=== PATIENT | female | born 1965 | race Caucasian/White ===

== ENCOUNTER 2016-04-03 12:22 | Inpatient (IN) | payer MEDICARE, OTHER ==
[2016-04-03] MEDS ORDERED: MAGNESIUM SULFATE/D5W 100 ML IV SCH (13:00)
--- NOTE | 2016-04-03 13:03 | ER Document Report ---
ED General - General Stated Complaint: SHORTNESS OF BREATH Mode of Arrival: Medic Information source: Patient Notes: Patient presents emergency department with reports of shortness of breath history of asthma. Patient reports symptoms started approximately 4 days ago. She was evaluated by Dr. Sal yesterday and was treated with steroids- 20mg day and doxycycline. Patient reports that around 03:00 this am she awoke with increased problems breathing and has been doing the DuoNeb every hour. Patient reports she's been intubated 9 times due to her asthma. Last time they used the nonrebreather mask on her and she did much better than intubated. She denies other symptoms such as fever vomiting diarrhea. Patient reports she feels calm and tired now. TRAVEL OUTSIDE OF THE [place] IN LAST 30 DAYS: No - HPI Onset: Other - 4 days Onset/Duration: Persistent Quality of pain: No pain Associated symptoms: None Exacerbated by: Denies Relieved by: Denies Similar symptoms previously: Yes Recently seen / treated by doctor: Yes - Related Data Allergies/Adverse Reactions: ceftriaxone sodium [From Rocephin] Allergy (Severe, Verified 02/07/16 12:41) resp. distress Histamine H2 Inhibitors Allergy (Severe, Verified 02/07/16 12:41) Hives latex [Latex] Allergy (Severe, Verified 02/07/16 12:41) rash Penicillins Allergy (Severe, Verified 02/07/16 12:41) anaphalactic moxifloxacin HCl [From Avelox] Adverse Reaction (Severe, Verified 02/07/16 12:41 ) Past Medical History - General Information source: Patient - Social History Smoking Status: Unknown if Ever Smoked Cigarette use (# per day): No Frequency of alcohol use: None Drug Abuse: None Lives with: Family Family History: CAD, Hypertension, Malignancy - Past Medical History Cardiac Medical History: Reports: Hx Hypertension, Hx Pulmonary Embolism Pulmonary Medical History: Reports: Hx Asthma, Hx Pneumonia - 2014, Hx Intubation - x9, Hx Respiratory Failure Renal/ Medical History: Reports: Hx Kidney Stones Malignancy Medical History: Reports: Hx Breast Cancer Musculoskeltal Medical History: Reports Hx Arthritis - shoulders, hips Psychiatric Medical History: Reports: Hx Anxiety Denies: Hx Depression Past Surgical History: Reports: Hx Abdominal Surgery - hiatal hernia, Hx Breast Surgery - Benign mass removed R breast, Hx Section, Hx Cholecystectomy , Hx Genitourinary Surgery - Hiatal hernia repair, Hx Lumpectomy. Denies: Hx Appendectomy, Hx Bowel Surgery, Hx Coronary Artery Bypass Graft, Hx Gastric Bypass Surgery, Hx Herniorrhaphy, Hx Hysterectomy, Hx Mastectomy, Hx Pacemaker, Hx Tonsillectomy, Hx Tubal Ligation - Immunizations Immunizations up to date: Yes Hx Diphtheria, Pertussis, Tetanus Vaccination: Yes Hx Pneumococcal Vaccination: 04/15/11 Review of Systems - Review of Systems Notes: Review HPI for review of systems., All other systems negative Physical Exam - Vital signs Vitals: Temp Pulse Resp BP Pulse Ox 98.9 F 116 H 22 H 179/114 H 90 L 04/03/16 12:25 04/03/16 12:25 04/03/16 12:25 04/03/16 12:25 04/03/16 12:25 - Notes Notes: PHYSICAL EXAMINATION: GENERAL: No acute distress HEAD: Atraumatic, normocephalic. EYES: Pupils equal round extraocular movements intact, sclera anicteric, conjunctiva are normal. ENT: 4l/nc, nares patent, Moist mucous membranes. NECK: Normal range of motion, supple without lymphadenopathy LUNGS: Wheezes A & P HEART: tachypneic ABDOMEN: Soft, no tenderness. No guarding, no rebound EXTREMITIES: Normal range of motion, no pitting edema. No cyanosis. NEUROLOGICAL: Cranial nerves grossly intact. Normal sensory/motor exams. PSYCH: Normal mood, normal affect. SKIN: Warm, Dry, normal turgor, no rashes or lesions noted Course - Re-evaluation Re-evalutation: 04/03/16 13:00 Dr. La consulted regarding patient's symptoms. She agrees with magnesium. Advises abg, plan for admission. Patient reports she's had magnesium before without problems. Patient also reports she does not tolerate being intubated more BiPAP. Patient reports last time she was here they put her on a nonrebreather and that worked. 04/03/16 14:37 Patient O2 sat remained 88-90 percent. Patient with no retraction reports she just feels very tired. albuteral neb ordered 04/03/16 15:41 Patient declines BiPAP. Agrees to try Ventimask, O2 sat still remained 88-90%. pt ST. Dr. Brower consult for admission. Patient to be admitted to [facility]. Patient opted - Vital Signs Vital signs: Temp Pulse Resp BP Pulse Ox 98.9 F 116 H 21 H 142/91 H 90 L 04/03/16 12:25 04/03/16 12:25 04/03/16 16:00 04/03/16 15:01 04/03/16 16:00 - Laboratory Result Diagrams: 04/03/16 13:28 04/03/16 13:28 Laboratory results interpreted by me: 04/03/16 04/03/16 04/03/16 13:28 13:28 13:28 WBC 11.1 H MCV 76 L MCH 25.7 L RDW 16.1 H Seg Neutrophils % 82.7 H Lymphocytes % 10.1 L Absolute Neutrophils 9.2 H D-Dimer 1.93 H Carbonic Acid ABG pCO2 ABG pO2 ABG O2 Saturation Potassium 3.5 L Carbon Dioxide 21 L Glucose 143 H 04/03/16 14:15 WBC MCV MCH RDW Seg Neutrophils % Lymphocytes % Absolute Neutrophils D-Dimer Carbonic Acid 1.01 L ABG pCO2 33.5 L ABG pO2 52.1 L ABG O2 Saturation 88.7 L Potassium Carbon Dioxide Glucose - Diagnostic Test Radiology reviewed: Image reviewed, Reports reviewed - IMPRESSION: Negative chest allowing for low lung volumes. - EKG Interpretation by Me EKG shows normal: Sinus rhythm Discharge - Discharge Clinical Impression: Breathing difficulty, Asthma exacerbation Condition: Stable Disposition: ADMITTED INPATIENT Admitting Provider: Hospitalist - Dr. Brower Unit Admitted: [facility]
[2016-04-03] MEDS: MAGNESIUM SULFATE/D5W 100 ML IV SCH ×2 (13:06→14:20)
[2016-04-03 13:40] LABS: ABSOLUTE BASOPHILS # (AUTO) 0.1 10^3/uL (0.0-0.2); ABSOLUTE LYMPHOCYTES (AUTO) 1.1 10^3/uL (0.5-4.7); ABSOLUTE MONOCYTES (AUTO) 0.7 10^3/uL (0.1-1.4); ABSOLUTE NEUT (AUTO) 9.2 10^3/uL (1.7-8.2); BASOPHILS % (AUTO) 0.5 % (0-2); EOSINOPHILS % (AUTO) 0.4 % (0-6); HEMATOCRIT 39.4 % (36.0-47.0); HEMOGLOBIN 13.3 g/dL (12.0-15.5); HGB HCT DIFFERENCE 0.5; LYMPHOCYTES % (AUTO) 10.1 % (13-45); MEAN CORPUSCULAR HEMOGLOBIN 25.7 pg (27.0-33.4); MEAN CORPUSCULAR HGB CONC 33.7 g/dL (32.0-36.0); MEAN CORPUSCULAR VOLUME 76 fl (80-97); MONOCYTES % (AUTO) 6.3 % (3-13); RED BLOOD COUNT 5.17 10^6/uL (3.72-5.28); RED CELL DISTRIBUTION WIDTH 16.1 % (11.5-14.0); SEGMENTED NEUTROPHILS % (AUTO) 82.7 % (42-78); WHITE BLOOD COUNT 11.1 10^3/uL (4.0-10.5)
[2016-04-03 13:55] LABS: ALANINE AMINOTRANSFERASE 40 U/L (9-52); ALBUMIN 4.1 g/dL (3.5-5.0); ALKALINE PHOSPHATASE 79 U/L (38-126); ANION GAP 18 (5-19); ASPARTATE AMINO TRANSFERASE 23 U/L (14-36); BILIRUBIN,TOTAL 0.5 mg/dL (0.2-1.3); BLOOD UREA NITROGEN 11 mg/dL (7-20); CALCIUM 9.9 mg/dL (8.4-10.2); CARBON DIOXIDE 21 mmol/L (22-30); CHLORIDE 101 mmol/L (98-107); CREATINE KINASE 80 U/L (30-135); GLUCOSE 143 mg/dL (75-110); POTASSIUM 3.5 mmol/L (3.6-5.0); SODIUM 139.6 mmol/L (137-145); TOTAL PROTEIN 7.3 g/dL (6.3-8.2)
[2016-04-03 14:08] LABS: CREATINE KINASE MB 1.06 ng/mL (<4.55); TROPONIN I < 0.012 ng/mL
[2016-04-03] MEDS ORDERED: ALBUTEROL SULFATE 0.083% NEB 2.5 MG/3 ML AMPUL NEB ONE ×2 (14:36→16:17)
[2016-04-03 14:51] LABS: ARTERIAL BLOOD BASE EXCESS -0.6 mmol/L; ARTERIAL BLOOD O2 SATURATION 88.7 % (94-98)
[2016-04-03] MEDS ORDERED: ACETAMINOPHEN 325 MG TABLET PO PRN (17:16)
[2016-04-03] MEDS ORDERED: NORMAL SALINE 1000 ML 1,000 ML IV PRN (17:16)
[2016-04-03] MEDS ORDERED: ONDANSETRON HCL INJ/PF 4 MG/2 ML SDV IV PRN (17:25)
[2016-04-03] MEDS ORDERED: LORAZEPAM INJ 2 MG/1 ML VIAL IV PRN (17:26)
[2016-04-03] MEDS ORDERED: METHYLPREDNISOLONE INJ 125 MG/2 ML SDV IV ONE ×2 (17:27→19:30)
[2016-04-03] MEDS ORDERED: OXYCODONE-ACETAMINOPHEN 5-325 MG TABLET PO PRN (17:29)
[2016-04-03] MEDS ORDERED: METHYLPREDNISOLONE INJ 125 MG/2 ML SDV IV SCH (17:30)
[2016-04-03] MEDS ORDERED: DEXTROSE 50%-WATER 25 GM/50 ML DISP.SYRIN IV PRN ×2 (17:32)
[2016-04-03] MEDS ORDERED: GLUCAGON,HUMAN RECOMB 1 MG INJ IM PRN (17:32)
[2016-04-03] MEDS ORDERED: DEXTROSE 40% GEL 15 GM TUBE PO PRN ×2 (17:32)
[2016-04-03] MEDS ORDERED: SULFAMETHOXAZOLE/TRIMETHOPRIM 800-160 MG TABLET PO SCH (18:00)
--- NOTE | 2016-04-03 18:15 | PDOC H&P ---
History of Present Illness Admission Date/PCP: 04/03/16 Patient complains of: Shortness of breath History of Present Illness: VALERIA ST is a 50 year old female with history of asthma, multiple intubations in the past has been having shortness of breath and wheezing with dry cough for the past 4 days. Patient using nebulizers and inhalers w/ Partial relieve symptoms. No chills or fever. There is some runny nose occasional sneezing and watery eyes. There is sore scratchy throat and postnasal drip. 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 However her oxygen saturation persisted to read low therefore the ambulance was called. Given 1 dose of Solu-Medrol according to the staff. 2 doses of magnesium and DuoNeb nebulizers were given. Oxygen saturation was low and patient was placed on BiPAP but she refused. No mental status change was reported. The patient was then referred for admission. Patient denies any chest pain or chest congestion. She has a little bit anxious and feeling tired. Past Medical History Cardiac Medical History: Reports: Hypertension, Pulmonary Embolism Pulmonary Medical History: Reports: Asthma, Intubation - x9, Pneumonia - 2014, Respiratory Failure Malignancy Medical History: Reports: Breast Cancer Musculoskeltal Medical History: Reports: Arthritis - shoulders, hips Psychiatric Medical History: Denies: Depression Hematology: Reports: Anemia - Teenage years, & after csection Past Surgical History Past Surgical History: Reports: Section, Cholecystectomy Denies: Amputation, Appendectomy, Coronary Artery Bypass Graft, Gastric Bypass Surgery, Herniorrhaphy, Hysterectomy, Mastectomy, Pacemaker, Tonsillectomy, Tubal Ligation Social History Information Source: Patient Lives with: Family Smoking Status: Never Smoker Frequency of Alcohol Use: None Hx Recreational Drug Use: No Drugs: None Hx Prescription Drug Abuse: No Family History Family History: CAD, Hypertension, Malignancy Parental Family History Reviewed: Yes Children Family History Reviewed: Yes Sibling(s) Family History Reviewed.: Yes Medication/Allergy Home Medications: Albuterol Sulfate [Ventolin HFA MDI 18 GM] 2 puff IH Q4H PRN 05/19/12 Ipratropium/Albuterol Sulfate [Duoneb 3 ml Ampul] 3 ml NEB RTQ4HP PRN #0 vial.neb 06/08/12 Lisinopril/Hydrochlorothiazide [Lisinopril-Hctz 20-12.5 mg Tab] 2 tab PO QHS Mometasone/Formoterol [Dulera 100 Mcg/5 Mcg Inhaler] 2 puff IH BID 11/27/14 Cetirizine HCl [Zyrtec 10 mg Tablet] 1 tab PO DAILY 11/01/15 Lorazepam [Ativan 1 mg Tablet] 1 mg PO Q6HP PRN #20 tablet 11/05/15 Prednisone [Sterapred Ds] 1 pkg PO ASDIR PRN 12 Days 11/05/15 Sulfamethoxazole/Trimethoprim [Bactrim Ds Tablet] 1 each PO BID #28 tablet 11/04 Cyclobenzaprine HCl [Flexeril 10 mg Tablet] 10 mg PO TIDP PRN #15 tab 02/05/16 Oxycodone HCl/Acetaminophen [Percocet 5-325 mg Tablet] 1 - 2 tab PO Q4H PRN #15 tablet 02/05/16 Allergies/Adverse Reactions: ceftriaxone sodium [From Rocephin] Allergy (Severe, Verified 02/07/16 12:41) resp. distress Histamine H2 Inhibitors Allergy (Severe, Verified 02/07/16 12:41) Hives latex [Latex] Allergy (Severe, Verified 02/07/16 12:41) rash Penicillins Allergy (Severe, Verified 02/07/16 12:41) anaphalactic moxifloxacin HCl [From Avelox] Adverse Reaction (Severe, Verified 02/07/16 12:41 ) Review of Systems Constitutional: PRESENT: weakness - Generalized. ABSENT: chills, fever(s), headache(s), weight gain, weight loss Eyes: ABSENT: visual disturbances Ears: ABSENT: hearing changes Nose, Mouth, and Throat: PRESENT: sore throat - Scratching more than sore. ABSENT: mouth pain Cardiovascular: PRESENT: dyspnea on exertion. ABSENT: chest pain, edema, orthropnea, palpitations Respiratory: ABSENT: cough, hemoptysis Gastrointestinal: ABSENT: abdominal pain, constipation, diarrhea, hematemesis, hematochezia, nausea, vomiting Genitourinary: ABSENT: dysuria, hematuria Musculoskeletal: ABSENT: joint swelling Integumentary: ABSENT: pruritus, rash, wounds Neurological: ABSENT: abnormal gait, abnormal speech, confusion, dizziness, focal weakness, syncope Psychiatric: PRESENT: anxiety. ABSENT: depression, homidical ideation, suicidal ideation Endocrine: ABSENT: cold intolerance, heat intolerance, polydipsia, polyuria Hematologic/Lymphatic: ABSENT: easy bleeding, easy bruising Physical Exam Vital Signs: Temp Pulse Resp BP Pulse Ox 98.9 F 116 H 21 H 142/91 H 90 L 04/03/16 12:25 04/03/16 12:25 04/03/16 16:00 04/03/16 15:01 04/03/16 16:00 Intake & Output 04/02/16 04/03/16 04/04/16 06:59 06:59 06:59 Weight 104.326 kg General appearance: PRESENT: mild distress, morbidly obese Head exam: PRESENT: atraumatic, normocephalic Eye exam: PRESENT: conjunctiva pink, EOMI, PERRLA. ABSENT: scleral icterus Ear exam: PRESENT: normal external ear exam. ABSENT: drainage Mouth exam: PRESENT: moist, neck supple, tongue midline Throat exam: ABSENT: post pharyngeal erythema, tonsillar erythema, tonsillar exudate, tonsillogmegaly Neck exam: ABSENT: carotid bruit, JVD, lymphadenopathy, thyromegaly Respiratory exam: PRESENT: decreased breath sounds, wheezes - Minimal, air exchange is fair. ABSENT: rales, rhonchi Cardiovascular exam: PRESENT: RRR, tachycardia. ABSENT: diastolic murmur, rubs , systolic murmur Pulses: PRESENT: normal dorsalis pedis pul Vascular exam: PRESENT: normal capillary refill GI/Abdominal exam: PRESENT: normal bowel sounds, soft. ABSENT: distended, guarding, mass, organolmegaly, rebound, tenderness Rectal exam: PRESENT: deferred Extremities exam: PRESENT: full ROM. ABSENT: calf tenderness, clubbing, pedal edema Neurological exam: PRESENT: alert, awake, oriented to person, oriented to place , oriented to time, oriented to situation Psychiatric exam: PRESENT: appropriate affect, normal mood. ABSENT: homicidal ideation, suicidal ideation Skin exam: PRESENT: dry, intact, warm. ABSENT: cyanosis, rash Results Laboratory Results: 04/03/16 13:28 04/03/16 13:28 04/03/16 04/03/16 04/03/16 13:28 13:28 13:28 WBC 11.1 H RBC 5.17 Hgb 13.3 Hct 39.4 MCV 76 L MCH 25.7 L MCHC 33.7 RDW 16.1 H Plt Count 345 Seg Neutrophils % 82.7 H Lymphocytes % 10.1 L Monocytes % 6.3 Eosinophils % 0.4 Basophils % 0.5 Absolute Neutrophils 9.2 H Absolute Lymphocytes 1.1 Absolute Monocytes 0.7 Absolute Eosinophils 0.0 Absolute Basophils 0.1 Carbonic Acid HCO3/H2CO3 Ratio ABG pH ABG pCO2 ABG pO2 ABG HCO3 ABG O2 Saturation ABG Base Excess FiO2 Sodium 139.6 Potassium 3.5 L Chloride 101 Carbon Dioxide 21 L Anion Gap 18 BUN 11 Creatinine 0.80 Est GFR ( Amer) > 60 Est GFR (Non-Af Amer) > 60 Glucose 143 H Calcium 9.9 Phosphorus 2.7 Total Bilirubin 0.5 AST 23 ALT 40 Alkaline Phosphatase 79 Total Protein 7.3 Albumin 4.1 04/03/16 14:15 WBC RBC Hgb Hct MCV MCH MCHC RDW Plt Count Seg Neutrophils % Lymphocytes % Monocytes % Eosinophils % Basophils % Absolute Neutrophils Absolute Lymphocytes Absolute Monocytes Absolute Eosinophils Absolute Basophils Carbonic Acid 1.01 L HCO3/H2CO3 Ratio 22:1 ABG pH 7.45 ABG pCO2 33.5 L ABG pO2 52.1 L ABG HCO3 22.7 ABG O2 Saturation 88.7 L ABG Base Excess -0.6 FiO2 4L Sodium Potassium Chloride Carbon Dioxide Anion Gap BUN Creatinine Est GFR ( Amer) Est GFR (Non-Af Amer) Glucose Calcium Phosphorus Total Bilirubin AST ALT Alkaline Phosphatase Total Protein Albumin 04/03/16 04/03/16 13:28 13:28 Creatine Kinase 80 CK-MB (CK-2) 1.06 Troponin I < 0.012 Impressions: Chest X-Ray 04/03/16 12:44 IMPRESSION: Negative chest allowing for low lung volumes. Assessment & Plan - Diagnosis (1) Acute hypoxemic respiratory failure Is this a current diagnosis for this admission?: Yes (2) Asthma exacerbation Is this a current diagnosis for this admission?: Yes (3) Hypokalemia Is this a current diagnosis for this admission?: Yes (4) Diabetes mellitus with hyperglycemia Qualifiers: Diabetes mellitus type: type 2 Diabetes mellitus manager terminal insulin use : unspecified correction insulin use status Qualified Code(s): E11.65 - Type 2 diabetes mellitus with hyperglycemia Is this a current diagnosis for this admission?: Yes (5) Accelerated essential hypertension Is this a current diagnosis for this admission?: Yes (6) Obesity Qualifiers: Obesity type: unspecified obesity type Obesity severity: unspecified obesity severity Qualified Code(s): E66.9 - Obesity, unspecified Is this a current diagnosis for this admission?: Yes (7) Generalized anxiety disorder Is this a current diagnosis for this admission?: Yes - Time Time Spent: 50 to 70 Minutes Anticipated discharge: Home Within: within 72 hours - Inpatient Certification Based on my medical assessment, after consideration of the patient's comorbidities, presenting symptoms, or acuity I expect that the services needed warrant INPATIENT care.: Yes I certify that my determination is in accordance with my understanding of Medicare's requirements for reasonable and necessary INPATIENT services [42 CFR 412.3e].: Yes Medical Necessity: Significant Comorbidiites Make Outpatient Treatment Too Risky , Need Close Monitoring Due to Risk of Patient Decompensation, Need For Continuous Telemetry Monitoring, Risk of Complication if Not Cared For in Hospital - Plan Summary Plan Summary: Admit the patient to IMCU. Begin around the clock bronchodilator therapy as well as intravenous steroids. Supplemental oxygen with BiPAP will be continued with administration of intravenous anxiolytics. Patient will be on bed rest with commode privileges. We will replace potassium and monitor electrolytes. She will be on sliding scale insulin. DVT prophylaxis with Lovenox will be given. Further testing depends on the initial evaluation and response to treatment as outlined above.
[2016-04-03] MEDS ORDERED: LEVALBUTEROL HCL NEB 1.25 MG/3 ML AMPUL NEB PRN (18:30)
[2016-04-03] MEDS ORDERED: ENOXAPARIN SODIUM INJ 40 MG/0.4 ML DISP.SYRIN SUBCUT ONE (18:30)
[2016-04-03] MEDS ORDERED: CETIRIZINE 10 MG TABLET PO ONE (18:30)
[2016-04-03] MEDS ORDERED: POTASSIUM CHLORIDE 20 MEQ/50 ML RTU IV ONE (19:30)
--- NOTE | 2016-04-03 19:41 | EKG REPORT ---
SEVERITY:- ABNORMAL ECG - SINUS TACHYCARDIA ABNORMAL T, CONSIDER ISCHEMIA, LATERAL LEADS : Confirmed by: Geovanny Browne MD 03-Apr-2016 19:40:23
[2016-04-03] MEDS: POTASSI CL 20 MEQ/50 ML RIDER 50 ML IV SCH (19:45)
[2016-04-03] MEDS: DOCUSATE SODIUM 100 MG CAPSULE PO SCH (19:45)
[2016-04-03] MEDS ORDERED: DOCUSATE SODIUM 100 MG CAPSULE PO ONE (20:00)
[2016-04-03 20:52] LABS: VENOUS BLOOD BASE EXCESS -3.9 mmol/L; VENOUS BLOOD HCO3 19.7 mmol/L (20-32); VENOUS BLOOD PCO2 31.9 mmHg (35-63); VENOUS BLOOD PH 7.41 (7.30-7.42)
[2016-04-03 21:05] LABS: PARTIAL THROMBOPLASTIN TIME 26.7 SEC (23.5-35.8)
[2016-04-03] MEDS ORDERED: (PENDING PHARMACY ID) (Lisinopril/Hydrochlorothiazide [Lisinopril-Hctz 20-12.5 Mg Tab] 2 T PO SCH (22:00)
[2016-04-03] MEDS ORDERED: HYDROCHLOROTHIAZIDE 25 MG TABLET PO SCH (22:00)
[2016-04-03] MEDS ORDERED: LISINOPRIL 10 MG TABLET PO SCH (22:00)
[2016-04-03] MEDS: LEVALBUTEROL HCL NEB 1.25 MG/3 ML AMPUL NEB SCH (22:34)
[2016-04-03 23:00] LABS: ARTERIAL BLOOD O2 SATURATION 86.3 % (94-98)
[2016-04-03] MEDS ORDERED: POTASSIUM CHLORIDE 10 MEQ TABLET.SA PO ONE (23:12)
[2016-04-03] MEDS: MONTELUKAST SODIUM 10 MG TABLET PO SCH (23:40)
[2016-04-03] MEDS: POTASSI CL 20 MEQ/D5NS 1L 1,000 ML IV PRN (23:50)
[2016-04-04] MEDS: LEVALBUTEROL HCL NEB 1.25 MG/3 ML AMPUL NEB SCH ×6 (00:12→20:41)
[2016-04-04] MEDS ORDERED: NORMAL SALINE 1000 ML 500 ML IV PRN (00:36)
[2016-04-04 04:23] LABS: ANION GAP 17 (5-19); BLOOD UREA NITROGEN 14 mg/dL (7-20); CALCIUM 9.4 mg/dL (8.4-10.2); CARBON DIOXIDE 17 mmol/L (22-30); CHLORIDE 102 mmol/L (98-107); CREATININE RESULT 0.77 mg/dL (0.52-1.25); GLUCOSE 193 mg/dL (75-110); POTASSIUM 4.1 mmol/L (3.6-5.0); SODIUM 135.7 mmol/L (137-145)
[2016-04-04] MEDS ORDERED: AZTREONAM INJ 1 GM VIAL IV SCH (04:30)
[2016-04-04] MEDS ORDERED: AZITHROMYCIN INJ 500 MG VIAL IV PRN (04:38)
[2016-04-04] MEDS ORDERED: AZTREONAM INJ 1 GM VIAL IV PRN (04:41)
[2016-04-04] MEDS ORDERED: AZTREONAM 1 GM in DEXTROSE 5%-WATER 50 ML IV ONE (04:45)
[2016-04-04] MEDS ORDERED: AZITHROMYCIN 500 MG in DEXTROSE 5%-WATER 250 ML IV ONE (05:00)
--- NOTE | 2016-04-04 09:03 | PDOC PROGRESS REPORT ---
Subjective Progress Note for:: 04/04/16 Subjective:: Patient feels better today. Tachycardia resolved. Still requiring high FiO2 but 02 saturation improved. Denies any chills or fever. Sensation of malaise and fatigue improved. No nausea or vomiting or diarrhea. Patient able to be off BiPAP. Still with anxiety and jitteriness intermittently. D-dimer elevated and CT angiogram of the chest did not reveal any pulmonary embolism. There is a questionable pneumonia or atelectasis. Physical Exam Vital Signs: Temp Pulse Resp BP Pulse Ox 98.9 F 90 20 124/72 93 04/03/16 12:25 04/04/16 08:16 04/04/16 08:16 04/04/16 06:00 04/04/16 08:16 General appearance: PRESENT: mild distress, morbidly obese Head exam: PRESENT: normocephalic Eye exam: PRESENT: EOMI, PERRLA Mouth exam: PRESENT: moist, neck supple Neck exam: ABSENT: JVD Respiratory exam: PRESENT: decreased breath sounds. ABSENT: crackles, rhonchi, wheezes Cardiovascular exam: PRESENT: RRR. ABSENT: gallop GI/Abdominal exam: PRESENT: normal bowel sounds, soft. ABSENT: tenderness Extremities exam: ABSENT: pedal edema Neurological exam: PRESENT: alert, awake, oriented to person, oriented to place , oriented to time, oriented to situation Skin exam: PRESENT: dry, warm. ABSENT: cyanosis Results Laboratory Results: 04/04/16 03:50 04/03/16 04/03/16 04/03/16 19:40 19:40 19:40 Carbonic Acid HCO3/H2CO3 Ratio ABG pH ABG pCO2 ABG pO2 ABG HCO3 ABG O2 Saturation ABG Base Excess VBG pH 7.41 VBG pCO2 31.9 L VBG HCO3 19.7 L VBG Base Excess -3.9 FiO2 Sodium Potassium Chloride Carbon Dioxide Anion Gap BUN Creatinine Est GFR ( Amer) Est GFR (Non-Af Amer) Glucose Calcium Magnesium 2.0 Serum HCG, Qual NEGATIVE 04/03/16 04/04/16 22:25 03:50 Carbonic Acid 0.93 L HCO3/H2CO3 Ratio 21:1 ABG pH 7.43 ABG pCO2 31.0 L ABG pO2 49.0 L ABG HCO3 20.2 ABG O2 Saturation 86.3 L ABG Base Excess -3.0 VBG pH VBG pCO2 VBG HCO3 VBG Base Excess FiO2 75% Sodium 135.7 L Potassium 4.1 Chloride 102 Carbon Dioxide 17 L Anion Gap 17 BUN 14 Creatinine 0.77 Est GFR ( Amer) > 60 Est GFR (Non-Af Amer) > 60 Glucose 193 H Calcium 9.4 Magnesium Serum HCG, Qual Impressions: Chest X-Ray 04/03/16 12:44 IMPRESSION: Negative chest allowing for low lung volumes. Lung Scan-VQ NM 04/03/16 19:37 IMPRESSION: There are photopenic wedge-shaped segmental defects suggested in the right middle and left lower lobes. Cannot assess for ventilation-perfusion mismatches due to the radiotracer central clumping on ventilation series. If there is persistent concern for pulmonary embolism clinically, CT angiogram chest -PE protocol is recommended to further characterize. Chest/Abdomen CTA 04/04/16 00:00 IMPRESSION: 1. No PE. 2. Bilateral atelectasis versus developing pneumonia. Clinical correlation is needed. 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 Qualified Code(s): E11.65 - Type 2 diabetes mellitus with hyperglycemia Is this a current diagnosis for this admission?: Yes (5) Accelerated essential hypertension Is this a current diagnosis for this admission?: Yes (6) Obesity Qualifiers: Obesity type: unspecified obesity type Obesity severity: unspecified obesity severity Qualified Code(s): E66.9 - Obesity, unspecified Is this a current diagnosis for this admission?: Yes (7) Generalized anxiety disorder Is this a current diagnosis for this admission?: Yes - Time Time Spent with patient: 25-34 minutes - Plan Summary Plan Summary: Plan continue antibiotics. Continue steroids. Gentle IV hydration. Continue bronchodilators. Incentive spirometer. Continue oxygen support. Monitor electrolytes.
[2016-04-04] MEDS ORDERED: AZTREONAM 1 GM in DEXTROSE 5%-WATER 50 ML IV SCH (10:00)
[2016-04-04] MEDS ORDERED: OXYCODONE-ACETAMINOPHEN 5-325 MG TABLET PO PRN (10:06)
[2016-04-04] MEDS: CETIRIZINE 10 MG TABLET PO SCH (10:13)
[2016-04-04] MEDS: ENOXAPARIN SODIUM INJ 40 MG/0.4 ML DISP.SYRIN SUBCUT SCH (10:14)
[2016-04-04] MEDS: LANSOPRAZOLE 30 MG TAB.RAP.DR PO SCH (10:17)
[2016-04-04] MEDS: DOCUSATE SODIUM 100 MG CAPSULE PO SCH ×2 (10:17→18:10)
[2016-04-04] MEDS ORDERED: METHYLPREDNISOLONE INJ 125 MG/2 ML SDV IV ONE (11:00)
[2016-04-04] MEDS ORDERED: INFLUENZA ADLT QUAD (36MOS+) 2016-17 VAC 0.5 ML SYR IM PRN (11:35)
[2016-04-04] MEDS: AZTREONAM 1 GM in DEXTROSE 5%-WATER 50 ML IV SCH ×2 (14:01→21:47)
[2016-04-04] MEDS: METHYLPREDNISOLONE INJ 125 MG/2 ML SDV IV SCH ×2 (14:02→21:38)
[2016-04-04] MEDS: POTASSI CL 20 MEQ/D5NS 1L 1,000 ML IV PRN (14:03)
[2016-04-04] MEDS: INSULIN REG, HUMAN 100 UNIT/ML 3 ML VIAL (PYX) SUBCUT PRN ×2 (16:39→22:48)
[2016-04-04] MEDS: LORAZEPAM INJ 2 MG/1 ML VIAL IV PRN (18:25)
[2016-04-04] MEDS: LISINOPRIL 10 MG TABLET PO SCH (21:44)
[2016-04-04] MEDS: HYDROCHLOROTHIAZIDE 25 MG TABLET PO SCH (21:44)
[2016-04-04] MEDS ORDERED: AZITHROMYCIN 500 MG in DEXTROSE 5%-WATER 250 ML IV SCH (22:00)
[2016-04-05] MEDS: LEVALBUTEROL HCL NEB 1.25 MG/3 ML AMPUL NEB SCH ×6 (00:01→20:02)
[2016-04-05] MEDS: METHYLPREDNISOLONE INJ 125 MG/2 ML SDV IV SCH ×4 (02:23→21:06)
[2016-04-05 05:00] LABS: ANION GAP 11 (5-19); BLOOD UREA NITROGEN 17 mg/dL (7-20); CALCIUM 9.1 mg/dL (8.4-10.2); CARBON DIOXIDE 22 mmol/L (22-30); CHLORIDE 106 mmol/L (98-107); CREATININE RESULT 0.86 mg/dL (0.52-1.25); GLUCOSE 218 mg/dL (75-110); POTASSIUM 4.8 mmol/L (3.6-5.0); SODIUM 139.3 mmol/L (137-145)
[2016-04-05] MEDS: AZTREONAM 1 GM in DEXTROSE 5%-WATER 50 ML IV SCH (06:17)
[2016-04-05] MEDS: LANSOPRAZOLE 30 MG TAB.RAP.DR PO SCH (06:20)
[2016-04-05] MEDS: ENOXAPARIN SODIUM INJ 40 MG/0.4 ML DISP.SYRIN SUBCUT SCH (08:20)
[2016-04-05] MEDS: INSULIN REG, HUMAN 100 UNIT/ML 3 ML VIAL (PYX) SUBCUT PRN ×4 (08:20→22:09)
[2016-04-05] MEDS: POTASSI CL 20 MEQ/D5NS 1L 1,000 ML IV PRN (08:21)
[2016-04-05] MEDS ORDERED: IMIPENEM/CILASTATIN SODIUM INJ 500 MG VIAL IV SCH (08:45)
--- NOTE | 2016-04-05 08:51 | PDOC PROGRESS REPORT ---
Subjective Progress Note for:: 04/05/16 Subjective:: Patient continues to improve slowly. Patient having some tremors and anxiety attack intermittently. Patient easily desaturate on ambulation. Denies any chills or fever. No diarrhea. No nausea or vomiting. Able to tolerate oral intake. Cough with scanty phlegm. Physical Exam Vital Signs: Temp Pulse Resp BP Pulse Ox 97.5 F 77 16 133/79 H 93 04/05/16 07:00 04/05/16 07:00 04/05/16 07:00 04/05/16 07:00 04/05/16 07:00 Intake & Output 04/04/16 04/05/16 04/06/16 06:59 06:59 06:59 Intake Total 4322 Output Total 750 Balance 3572 Weight 106.3 kg General appearance: PRESENT: mild distress, morbidly obese Head exam: PRESENT: normocephalic Eye exam: PRESENT: EOMI, PERRLA Mouth exam: PRESENT: moist, neck supple Neck exam: ABSENT: JVD Respiratory exam: PRESENT: wheezes - Minimal, air entry is fair to good. ABSENT : crackles, rhonchi Cardiovascular exam: PRESENT: RRR. ABSENT: gallop GI/Abdominal exam: PRESENT: normal bowel sounds, soft, other - Obese. ABSENT: tenderness Extremities exam: PRESENT: pedal edema - Trace Neurological exam: PRESENT: alert, awake, oriented to situation Skin exam: PRESENT: dry, warm. ABSENT: cyanosis Results Laboratory Results: 04/05/16 04:15 04/05/16 04:15 Sodium 139.3 Potassium 4.8 Chloride 106 Carbon Dioxide 22 Anion Gap 11 BUN 17 Creatinine 0.86 Est GFR ( Amer) > 60 Est GFR (Non-Af Amer) > 60 Glucose 218 H Calcium 9.1 Impressions: Chest X-Ray 04/03/16 12:44 IMPRESSION: Negative chest allowing for low lung volumes. Lung Scan-VQ NM 04/03/16 19:37 IMPRESSION: There are photopenic wedge-shaped segmental defects suggested in the right middle and left lower lobes. Cannot assess for ventilation-perfusion mismatches due to the radiotracer central clumping on ventilation series. If there is persistent concern for pulmonary embolism clinically, CT angiogram chest -PE protocol is recommended to further characterize. Chest/Abdomen CTA 04/04/16 00:00 IMPRESSION: 1. No PE. 2. Bilateral atelectasis versus developing pneumonia. Clinical correlation is needed. Assessment & Plan - Diagnosis (1) Acute hypoxemic respiratory failure Is this a current diagnosis for this admission?: Yes (2) Asthma exacerbation Is this a current diagnosis for this admission?: Yes (3) Pneumonia Qualifiers: Pneumonia type: due to unspecified organism Laterality: unspecified laterality Lung location: unspecified part of lung Qualified Code(s) : J18.9 - Pneumonia, unspecified organism Is this a current diagnosis for this admission?: Yes (4) Hypokalemia Is this a current diagnosis for this admission?: Yes (5) Diabetes mellitus with hyperglycemia Qualifiers: Diabetes mellitus type: type 2 Diabetes mellitus 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 insulin use : unspecified 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 insulin use status Qualified Code(s): E11.65 - Type 2 diabetes mellitus with hyperglycemia Is this a current diagnosis for this admission?: Yes (6) Accelerated essential hypertension Is this a current diagnosis for this admission?: Yes (7) Obesity Qualifiers: Obesity type: unspecified obesity type Obesity severity: unspecified obesity severity Qualified Code(s): E66.9 - Obesity, unspecified Is this a current diagnosis for this admission?: Yes (8) Generalized anxiety disorder Is this a current diagnosis for this admission?: Yes - Time Time Spent with patient: 25-34 minutes - Plan Summary Plan Summary: Patient with minimal improvement but better. We will continue bronchodilators and steroids. We will change antibiotics to Primaxin. We will discontinue intravenous fluids. Begin antitussives.
[2016-04-05] MEDS: CETIRIZINE 10 MG TABLET PO SCH (09:02)
[2016-04-05] MEDS: DOCUSATE SODIUM 100 MG CAPSULE PO SCH ×2 (09:03→17:10)
[2016-04-05] MEDS ORDERED: BENZONATATE 100 MG CAPSULE PO ONE (09:15)
[2016-04-05] MEDS ORDERED: IMIPENEM/CILASTATIN SODIUM 500 MG in NORMAL SALINE 100 ML IV ONE (10:00)
[2016-04-05] MEDS: IMIPENEM/CILASTATIN SODIUM 500 MG in NORMAL SALINE 100 ML IV SCH ×3 (12:08→23:45)
[2016-04-05] MEDS: BENZONATATE 100 MG CAPSULE PO SCH ×2 (13:51→21:08)
[2016-04-05] MEDS: LORAZEPAM INJ 2 MG/1 ML VIAL IV PRN ×2 (16:44→20:45)
[2016-04-05] MEDS: LISINOPRIL 10 MG TABLET PO SCH (21:06)
[2016-04-05] MEDS: MONTELUKAST SODIUM 10 MG TABLET PO SCH (21:08)
[2016-04-05] MEDS: HYDROCHLOROTHIAZIDE 25 MG TABLET PO SCH (21:08)
[2016-04-05] MEDS: MAGNESIUM HYDROXIDE SUSP 30 ML UDCUP PO PRN (22:09)
[2016-04-06] MEDS: LEVALBUTEROL HCL NEB 1.25 MG/3 ML AMPUL NEB SCH ×6 (00:01→20:00)
[2016-04-06] MEDS: METHYLPREDNISOLONE INJ 125 MG/2 ML SDV IV SCH ×4 (02:10→20:36)
[2016-04-06] MEDS: LORAZEPAM INJ 2 MG/1 ML VIAL IV PRN ×4 (02:19→20:36)
[2016-04-06 04:37] LABS: HEMATOCRIT 35.2 % (36.0-47.0); HEMOGLOBIN 11.6 g/dL (12.0-15.5); HGB HCT DIFFERENCE -0.4; MEAN CORPUSCULAR HEMOGLOBIN 25.3 pg (27.0-33.4); MEAN CORPUSCULAR VOLUME 77 fl (80-97); RED BLOOD COUNT 4.58 10^6/uL (3.72-5.28); RED CELL DISTRIBUTION WIDTH 16.3 % (11.5-14.0); WHITE BLOOD COUNT 17.1 10^3/uL (4.0-10.5)
[2016-04-06] MEDS: BENZONATATE 100 MG CAPSULE PO SCH ×3 (05:32→22:08)
[2016-04-06] MEDS: IMIPENEM/CILASTATIN SODIUM 500 MG in NORMAL SALINE 100 ML IV SCH ×4 (05:32→23:51)
[2016-04-06] MEDS: LANSOPRAZOLE 30 MG TAB.RAP.DR PO SCH (05:36)
[2016-04-06] MEDS: INSULIN REG, HUMAN 100 UNIT/ML 3 ML VIAL (PYX) SUBCUT PRN ×4 (08:45→22:09)
[2016-04-06] MEDS: ENOXAPARIN SODIUM INJ 40 MG/0.4 ML DISP.SYRIN SUBCUT SCH (08:45)
[2016-04-06] MEDS: DOCUSATE SODIUM 100 MG CAPSULE PO SCH ×2 (10:35→17:03)
[2016-04-06] MEDS: CETIRIZINE 10 MG TABLET PO SCH (10:35)
--- NOTE | 2016-04-06 10:49 | PDOC PROGRESS REPORT ---
Subjective Progress Note for:: 04/06/16 Subjective:: Patient slightly improved today but still with a lot off discomfort on activity. There is no chest pain. No diarrhea. No abdominal pain nausea or vomiting. No temperature spikes. Physical Exam Vital Signs: Temp Pulse Resp BP Pulse Ox 97.4 F 88 20 130/85 H 91 L 04/06/16 08:00 04/06/16 08:00 04/06/16 08:00 04/06/16 08:00 04/06/16 08:00 Intake & Output 04/05/16 04/06/16 04/07/16 06:59 06:59 06:59 Intake Total 4322 2776 Output Total 750 600 Balance 3572 2176 Weight 106.3 kg 107 kg General appearance: PRESENT: no acute distress, cooperative, obese Head exam: PRESENT: normocephalic Eye exam: PRESENT: EOMI, PERRLA Mouth exam: PRESENT: moist, neck supple Neck exam: ABSENT: JVD Respiratory exam: PRESENT: decreased breath sounds, rhonchi - few B/L. ABSENT: wheezes Cardiovascular exam: PRESENT: RRR. ABSENT: gallop GI/Abdominal exam: PRESENT: soft. ABSENT: tenderness Extremities exam: PRESENT: other - Trace lower extremity edema Neurological exam: PRESENT: alert, awake, oriented to person, oriented to place , oriented to time, oriented to situation Skin exam: PRESENT: dry, warm. ABSENT: cyanosis Results Laboratory Results: 04/06/16 04:03 04/05/16 04:15 04/06/16 04:03 WBC 17.1 H RBC 4.58 Hgb 11.6 L Hct 35.2 L MCV 77 L MCH 25.3 L MCHC 33.0 RDW 16.3 H Plt Count 338 Impressions: Chest X-Ray 04/03/16 12:44 IMPRESSION: Negative chest allowing for low lung volumes. Lung Scan-VQ NM 04/03/16 19:37 IMPRESSION: There are photopenic wedge-shaped segmental defects suggested in the right middle and left lower lobes. Cannot assess for ventilation-perfusion mismatches due to the radiotracer central clumping on ventilation series. If there is persistent concern for pulmonary embolism clinically, CT angiogram chest -PE protocol is recommended to further characterize. Chest/Abdomen CTA 04/04/16 00:00 IMPRESSION: 1. No PE. 2. Bilateral atelectasis versus developing pneumonia. Clinical correlation is needed. Assessment & Plan - Diagnosis (1) Acute hypoxemic respiratory failure Is this a current diagnosis for this admission?: Yes (2) Asthma exacerbation Is this a current diagnosis for this admission?: Yes (3) Pneumonia Qualifiers: Pneumonia type: due to unspecified organism Laterality: unspecified laterality Lung location: unspecified part of lung Qualified Code(s) : J18.9 - Pneumonia, unspecified organism Is this a current diagnosis for this admission?: Yes (4) Hypokalemia Is this a current diagnosis for this admission?: Yes (5) Diabetes mellitus with hyperglycemia Qualifiers: Diabetes mellitus type: type 2 Diabetes mellitus jail insulin use : unspecified intermediate accountant insulin use status Qualified Code(s): E11.65 - Type 2 diabetes mellitus with hyperglycemia Is this a current diagnosis for this admission?: Yes (6) Accelerated essential hypertension Is this a current diagnosis for this admission?: Yes (7) Obesity Qualifiers: Obesity type: unspecified obesity type Obesity severity: unspecified obesity severity Qualified Code(s): E66.9 - Obesity, unspecified Is this a current diagnosis for this admission?: Yes (8) Generalized anxiety disorder Is this a current diagnosis for this admission?: Yes - Time Time Spent with patient: 15-24 minutes - Plan Summary Plan Summary: Continue current antibiotics and steroids. Continue bronchodilators. Continue supplemental oxygen. Continue supportive care.
[2016-04-06] MEDS: LEVALBUTEROL HCL NEB 1.25 MG/3 ML AMPUL NEB PRN (13:52)
[2016-04-06] MEDS: MAGNESIUM HYDROXIDE SUSP 30 ML UDCUP PO PRN (22:07)
[2016-04-06] MEDS: MONTELUKAST SODIUM 10 MG TABLET PO SCH (22:09)
[2016-04-06] MEDS: HYDROCHLOROTHIAZIDE 25 MG TABLET PO SCH (22:09)
[2016-04-06] MEDS: LISINOPRIL 10 MG TABLET PO SCH (22:09)
[2016-04-07] MEDS: LEVALBUTEROL HCL NEB 1.25 MG/3 ML AMPUL NEB SCH ×5 (00:01→16:19)
[2016-04-07] MEDS: LORAZEPAM INJ 2 MG/1 ML VIAL IV PRN ×2 (01:21→05:21)
[2016-04-07] MEDS: METHYLPREDNISOLONE INJ 125 MG/2 ML SDV IV SCH ×4 (03:28→21:08)
[2016-04-07] MEDS: IMIPENEM/CILASTATIN SODIUM 500 MG in NORMAL SALINE 100 ML IV SCH ×3 (05:21→19:33)
[2016-04-07] MEDS: BENZONATATE 100 MG CAPSULE PO SCH (05:21)
[2016-04-07] MEDS: LANSOPRAZOLE 30 MG TAB.RAP.DR PO SCH (05:22)
[2016-04-07] MEDS: ENOXAPARIN SODIUM INJ 40 MG/0.4 ML DISP.SYRIN SUBCUT SCH (08:33)
[2016-04-07] MEDS ORDERED: LORAZEPAM INJ 2 MG/1 ML VIAL IV PRN (08:53)
--- NOTE | 2016-04-07 08:58 | PDOC PROGRESS REPORT ---
Subjective Progress Note for:: 04/07/16 Subjective:: Patient is on nonrebreather mask today. Patient feeling tired. Not feeling any improvement from yesterday. No temperature spikes nausea or vomiting. Patient has a lot of anxiety. No nausea or vomiting. No diarrhea. Physical Exam Vital Signs: Temp Pulse Resp BP Pulse Ox 97.7 F 84 22 H 152/84 H 95 04/07/16 07:47 04/07/16 08:08 04/07/16 08:08 04/07/16 07:47 04/07/16 08:08 Intake & Output 04/06/16 04/07/16 04/08/16 06:59 06:59 06:59 Intake Total 2776 1475 Output Total 600 Balance 2176 1475 Weight 107 kg 108 kg General appearance: PRESENT: mild distress, morbidly obese Head exam: PRESENT: normocephalic Eye exam: PRESENT: EOMI Mouth exam: PRESENT: moist, neck supple Neck exam: ABSENT: JVD Respiratory exam: PRESENT: wheezes - mild. ABSENT: crackles, retraction, stridor, tachypnea Cardiovascular exam: PRESENT: RRR. ABSENT: gallop GI/Abdominal exam: PRESENT: hypoactive bowel sounds, soft. ABSENT: tenderness Extremities exam: ABSENT: pedal edema Neurological exam: PRESENT: alert, awake, oriented to situation Skin exam: PRESENT: dry, warm. ABSENT: cyanosis Results Laboratory Results: 04/06/16 04:03 04/05/16 04:15 Impressions: Chest X-Ray 04/03/16 12:44 IMPRESSION: Negative chest allowing for low lung volumes. Lung Scan-VQ NM 04/03/16 19:37 IMPRESSION: There are photopenic wedge-shaped segmental defects suggested in the right middle and left lower lobes. Cannot assess for ventilation-perfusion mismatches due to the radiotracer central clumping on ventilation series. If there is persistent concern for pulmonary embolism clinically, CT angiogram chest -PE protocol is recommended to further characterize. Chest/Abdomen CTA 04/04/16 00:00 IMPRESSION: 1. No PE. 2. Bilateral atelectasis versus developing pneumonia. Clinical correlation is needed. Assessment & Plan - Diagnosis (1) Acute hypoxemic respiratory failure Is this a current diagnosis for this admission?: Yes (2) Asthma exacerbation Is this a current diagnosis for this admission?: Yes (3) Pneumonia Qualifiers: Pneumonia type: due to unspecified organism Laterality: unspecified laterality Lung location: unspecified part of lung Qualified Code(s) : J18.9 - Pneumonia, unspecified organism Is this a current diagnosis for this admission?: Yes (4) Hypokalemia Is this a current diagnosis for this admission?: Yes (5) Diabetes mellitus with hyperglycemia Qualifiers: Diabetes mellitus type: type 2 Diabetes mellitus longterm insulin use : unspecified 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 Qualified Code(s): E11.65 - Type 2 diabetes mellitus with hyperglycemia Is this a current diagnosis for this admission?: Yes (6) Accelerated essential hypertension Is this a current diagnosis for this admission?: Yes (7) Obesity Qualifiers: Obesity type: unspecified obesity type Obesity severity: unspecified obesity severity Qualified Code(s): E66.9 - Obesity, unspecified Is this a current diagnosis for this admission?: Yes (8) Generalized anxiety disorder Is this a current diagnosis for this admission?: Yes - Time Time Spent with patient: 25-34 minutes - Plan Summary Plan Summary: Allergies the patient on Xanax. Continue when necessary Ativan but decreased the dose. We will obtain an ABG and a stat x-ray of the chest. We will continue intravenous steroids and bronchodilators. May need to electively intubate the patient.
[2016-04-07] MEDS ORDERED: ALPRAZOLAM 0.5 MG TABLET PO SCH (09:00)
[2016-04-07 09:48] LABS: ARTERIAL BLOOD BASE EXCESS 1.9 mmol/L; ARTERIAL BLOOD O2 SATURATION 94.6 % (94-98)
[2016-04-07] MEDS ORDERED: DEXTROSE 5%-WATER 250 ML with NOREPINEPHRINE BITARTRATE 4 MG IV PRN ×2 (10:19)
--- NOTE | 2016-04-07 10:27 | Progress Note ---
Provider Note Provider Note: Pt reportedly being tired and exhausted with respirations specially w/ slight movement. Has refused BIPAP due to claustrophobia. Transfer to ICU and electively intubate.
[2016-04-07] MEDS ORDERED: PHARMACY COMMUNICATION ORDER MC NR (10:30)
[2016-04-07] MEDS: CETIRIZINE 10 MG TABLET PO SCH (10:39)
[2016-04-07] MEDS: DOCUSATE SODIUM 100 MG CAPSULE PO SCH ×2 (10:40→19:53)
[2016-04-07] MEDS ORDERED: ACETAMINOPHEN 325 MG TABLET NG PRN (10:48)
[2016-04-07] MEDS ORDERED: MAGNESIUM HYDROXIDE SUSP 30 ML UDCUP NG PRN (10:54)
[2016-04-07] MEDS ORDERED: OXYCODONE-ACETAMINOPHEN 5-325 MG TABLET NG PRN (10:55)
[2016-04-07] MEDS ORDERED: MIDAZOLAM HCL 100 ML IV ONE (12:42)
[2016-04-07] MEDS ORDERED: PROPOFOL INJ 200 MG/20 ML VIAL IV ONE (12:49)
[2016-04-07] MEDS ORDERED: NORMAL SALINE INJ/PF 0.9% 10 ML SDV IV PRN (13:23)
--- NOTE | 2016-04-07 13:25 | Operative Report ---
Operative Report PREOPERATIVE DIAGNOSIS: Respiratory failure POSTOPERATIVE DIAGNOSIS: Same OPERATION: 1. Focused ultrasound of the right neck. 2. Ultrasound directed insertion of triple-lumen central venous access catheter SURGEON: CAROL CALLES ANESTHESIA: Local TISSUE REMOVED OR ALTERED: None COMPLICATIONS: None ESTIMATED BLOOD LOSS: none INTRAOPERATIVE FINDINGS: See below PROCEDURE: Informed consent was obtained. The patient was placed in Trendelenburg the right neck and chest wall were exposed, and prepped and draped in a sterile fashion. Surgical plan and surgical timeout discussed. The right neck was anesthetized with 1% lidocaine without epinephrine. Using the variable frequency linear transducer, real time, a 18-gauge needle and wire were threaded into the right internal jugular vein. The tract was dilated up, the dilator removed, and the triple-lumen central venous access catheter was threaded into the right internal jugular vein uneventfully to the hub. There was excellent aspiration and flush of saline through all 3 lumens. The catheter was affixed to the skin with a Biopatch and 2-0 silk suture; sterile dressing applied. The patient tolerated the procedure well. There were no complications. Portable upright chest x-ray pending at time of dictation.
[2016-04-07] MEDS ORDERED: NORMAL SALINE 500 ML with ROCURONIUM BROMIDE 500 MG IV PRN ×4 (13:38→14:00)
[2016-04-07] MEDS: PROPOFOL 100 ML IV PRN ×5 (13:57→21:15)
[2016-04-07] MEDS ORDERED: NICARDIPINE HCL RTU, ISO-OS 200 ML IV PRN ×2 (14:01→14:18)
[2016-04-07] MEDS: LEVALBUTEROL HCL NEB 1.25 MG/3 ML AMPUL NEB PRN (14:28)
[2016-04-07] MEDS ORDERED: SUCCINYLCHOLINE CHLORIDE INJ 200 MG/10 ML VIAL ONE (14:57)
[2016-04-07] MEDS ORDERED: ROCURONIUM BROMIDE INJ 50 MG/5 ML VIAL IV ONE (14:57)
[2016-04-07] MEDS ORDERED: FUROSEMIDE INJ/PF 40 MG/4 ML SDV ONE (15:20)
[2016-04-07 15:26] LABS: ARTERIAL BLOOD BASE EXCESS 2.4 mmol/L; ARTERIAL BLOOD O2 SATURATION 88.1 % (94-98)
[2016-04-07] MEDS ORDERED: IPRATROPIUM/ALBUTEROL 0.5-2.5 MG/3 ML AMPUL NEB PRN (15:28)
[2016-04-07 15:59] LABS: HEMATOCRIT 39.6 % (36.0-47.0); HGB HCT DIFFERENCE -0.6; MEAN CORPUSCULAR HEMOGLOBIN 25.4 pg (27.0-33.4); MEAN CORPUSCULAR HGB CONC 32.9 g/dL (32.0-36.0); MEAN CORPUSCULAR VOLUME 77 fl (80-97); RED BLOOD COUNT 5.14 10^6/uL (3.72-5.28); RED CELL DISTRIBUTION WIDTH 15.5 % (11.5-14.0); WHITE BLOOD COUNT 16.3 10^3/uL (4.0-10.5)
[2016-04-07] MEDS ORDERED: ACETYLCYSTEINE 20% SOLN 800 MG/4 ML VIAL.NEB NEB PRN (16:15)
[2016-04-07 16:20] LABS: PROTHROMBIN TIME 13.3 SEC (11.4-15.4)
[2016-04-07 16:21] LABS: ALANINE AMINOTRANSFERASE 49 U/L (9-52); ALKALINE PHOSPHATASE 76 U/L (38-126); ANION GAP 15 (5-19); ASPARTATE AMINO TRANSFERASE 21 U/L (14-36); BILIRUBIN,TOTAL 0.6 mg/dL (0.2-1.3); BLOOD UREA NITROGEN 25 mg/dL (7-20); CALCIUM 9.1 mg/dL (8.4-10.2); CARBON DIOXIDE 28 mmol/L (22-30); CHLORIDE 97 mmol/L (98-107); CREATININE RESULT 0.82 mg/dL (0.52-1.25); GLUCOSE 205 mg/dL (75-110); POTASSIUM 4.1 mmol/L (3.6-5.0); SODIUM 139.5 mmol/L (137-145); TOTAL PROTEIN 7.3 g/dL (6.3-8.2)
[2016-04-07 16:36] LABS: BAND NEUTROPHILS % (MANUAL) 2 % (3-5); BASOPHILS % (MANUAL) 0 % (0-2); EOSINOPHILS % (MANUAL) 0 % (0-6); LYMPHOCYTES % (MANUAL) 8 % (13-45); TOTAL CELLS COUNTED 100
[2016-04-07 16:39] LABS: ANISOCYTOSIS SLIGHT; HYPOCHROMASIA 1+; MICROCYTOSIS SLIGHT; OVALOCYTES SLIGHT; POLYCHROMASIA SLIGHT; TOXIC GRANULATION SLIGHT
[2016-04-07] MEDS ORDERED: MIDAZOLAM HCL 100 ML IV PRN (17:02)
--- NOTE | 2016-04-07 17:06 | PDOC TRANSFER SUMMARY ---
General Admission Date/PCP: 04/03/16 17:16 Admission Date: 04/03/16 Transfer Date: 04/07/16 Accepting Facility: [facility] Accepting Physician: Dr. Dale Resuscitation Status: Full Code - Transfer Diagnosis (1) Acute hypoxemic respiratory failure Current Visit: Yes (2) Asthma exacerbation Current Visit: Yes (3) Pneumonia Current Visit: Yes (4) Hypokalemia Current Visit: Yes (5) Diabetes mellitus with hyperglycemia Current Visit: Yes (6) Accelerated essential hypertension Current Visit: No (7) Obesity Current Visit: No (8) Generalized anxiety disorder Current Visit: Yes - Transfer Medications Home Medications: Lisinopril/Hydrochlorothiazide [Lisinopril-Hctz 20-12.5 mg Tab] 2 tab PO QHS Mometasone/Formoterol [Dulera 100 Mcg/5 Mcg Inhaler] 2 puff IH BID 11/27/14 Cetirizine HCl [Zyrtec 10 mg Tablet] 1 tab PO DAILY 11/01/15 Albuterol Sulfate [Proair HFA] 1 - 2 puff IH Q4 PRN 04/04/16 Transfer Medications: Current Medications Acetaminophen (Tylenol 325 Mg Tablet) 650 mg NG Q4HP PRN PRN Reason: fever Stop: 05/03/16 17:15 Acetylcysteine (Mucomist 20% Soln 800 Mg/4 Ml) 600 mg NEB RTBID ALLYSSA Stop: 05/07/16 19:59 Acetylcysteine (Mucomist 20% Soln 800 Mg/4 Ml) 600 mg NEB RTNOW PRN PRN Reason: THIS MED IS NOT "PRN" Stop: 04/07/16 17:14 Last Admin: 04/07/16 16:18 Dose: 600 mg Albuterol/Ipratropium (Duoneb 3 Ml Ampul) 3 ml NEB RTQ8HP PRN Stop: 05/07/16 15:27 Benzonatate (Tessalon Perles 100 Mg Capsule) 200 mg PO Q8 ALLYSSA Stop: 05/05/16 13:59 Last Admin: 04/07/16 05:21 Dose: 200 mg Budesonide (Pulmicort Neb 0.5 Mg/2 Ml Ampul) 0.5 mg NEB RTQ12 ALLYSSA Stop: 05/07/16 19:59 Cetirizine HCl (Zyrtec 10 Mg Tablet) 10 mg NG DAILY [facility] Stop: 05/04/16 09:59 Dextrose (Dextrose Inj 50% Syringe (25 Gm/50 Ml)) 12.5 gm IV PRN PRN; Protocol PRN Reason: FOR BG 50-69 IN ALERT PATIENT Stop: 05/03/16 17:31 Dextrose (Dextrose Inj 50% Syringe (25 Gm/50 Ml)) 25 gm IV PRN PRN PRN Reason: Protocol Stop: 05/03/16 17:31 Docusate Sodium (Colace 100 Mg Capsule) 100 mg PO BID [facility] Stop: 05/03/16 17:59 Last Admin: 04/07/16 10:40 Dose: Not Given Enoxaparin Sodium (Lovenox Inj 40 Mg/0.4 Ml Disp.Syrin) 40 mg SUBCUT QAM [facility] Stop: 05/04/16 07:59 Last Admin: 04/07/16 08:33 Dose: 40 mg Glucagon (Glucagen Inj 1 Mg Vial) 1 mg IM PRN PRN; Protocol PRN Reason: Evaluate for BG < 70 Stop: 05/03/16 17:31 Glucose (Glutose 40% Gel 15 Gm Tube) 15 gm PO PRN PRN; Protocol PRN Reason: FOR BG 50-69 IN ALERT PATIENT Stop: 05/03/16 17:31 Glucose (Glutose 40% Gel 15 Gm Tube) 30 gm PO PRN PRN; Protocol PRN Reason: FOR BG < 50 IN ALERT PATIENT Stop: 05/03/16 17:31 Heparin Sodium (Porcine) (Heparin Flush 10 Unit/Ml 5 Ml Disp.Syrg) 30 unit IV Q8 [facility] Stop: 05/07/16 13:59 Last Admin: 04/07/16 14:54 Dose: Not Given Heparin Sodium (Porcine) (Heparin Flush 10 Unit/Ml 5 Ml Disp.Syrg) 30 unit IV .AFTER EACH USE PRN PRN Reason: AFTER EACH INTERMITTENT USE Stop: 05/07/16 13:22 Hydrochlorothiazide (Hydrodiuril 25 Mg Tablet) 25 mg NG QHS [facility] Stop: 05/04/16 21:59 Imipenem/Cilastatin Sodium 500 (mg/ Sodium Chloride) 100 mls @ 100 mls/hr IV Q6 [facility] Stop: 04/12/16 11:59 Last Admin: 04/07/16 11:07 Dose: 500 mg Norepinephrine Bitartrate 4 mg (/ Dextrose) 254 mls @ 0 mls/hr IV CONTINUOUS PRN; Protocol; Titrate PRN Reason: THIS MED IS NOT "PRN" Stop: 05/07/16 10:18 Propofol (Diprivan Rtu 1000 Mg/100 Ml Inf.Bottle) 100 mls @ 0 mls/hr IV CONTINUOUS PRN; Protocol; Titrate PRN Reason: THIS MED IS NOT "PRN" Stop: 05/07/16 10:18 Last Admin: 04/07/16 16:44 Dose: 100 ml Rocuronium [place] 500 mg/ (Sodium Chloride) 500 mls @ 0 mls/hr IV CONTINUOUS PRN; Protocol; Titrate PRN Reason: THIS MED IS NOT "PRN" Stop: 05/07/16 13:37 Last Admin: 04/07/16 16:44 Dose: 500 mg Nicardipine HCl (Cardene 20 Mg/200 Ml Premix Bag) 200 mls @ 0 mls/hr IV CONTINUOUS PRN; Protocol; Per Protocol PRN Reason: THIS MED IS NOT "PRN" Stop: 05/07/16 14:00 Influenza Virus Vaccine Quadrival (Fluzone Adlt Quad [id number] Vac 0.5 Ml Syr) 0.5 ml IM .AT DISCHARGE PRN PRN Reason: THIS MED IS NOT "PRN" Stop: 05/04/16 11:34 Insulin Human Regular (Humulin R (Pyxis) Insulin 100 Unit/Ml 3ml) 0 - 12 unit SUBCUT ACHSP PRN PRN Reason: Protocol Stop: 05/03/16 17:31 Last Admin: 04/06/16 22:09 Dose: 6 unit Lansoprazole (Prevacid 30 Mg Odt Tablet) 30 mg NG Q6AM ALLYSSA Stop: 05/04/16 05:59 Levalbuterol HCl (Xopenex Neb 1.25 Mg/3 Ml Ampul) 1.25 mg NEB RTQ4 ALLYSSA Stop: 05/03/16 19:59 Last Admin: 04/07/16 16:19 Dose: 1.25 mg Levalbuterol HCl (Xopenex Neb 1.25 Mg/3 Ml Ampul) 1.25 mg NEB RTQ2HP PRN Stop: 05/03/16 17:15 Last Admin: 04/07/16 14:28 Dose: 1.25 mg Lisinopril (Prinivil 10 Mg Tablet) 40 mg NG QHS ALLYSSA Stop: 05/04/16 21:59 Magnesium Hydroxide (Milk Of Magnesia 30 Ml Udcup) 30 ml NG DAILYP PRN Stop: 05/05/16 21:52 Methylprednisolone Sodium Succinate (Solu-Medrol Inj/Pf 125 Mg/2 Ml Sdv) 125 mg IV Q6A ALLYSSA Stop: 05/03/16 17:29 Last Admin: 04/07/16 14:53 Dose: 125 mg Montelukast Sodium (Singulair 10 Mg Tablet) 10 mg NG QHS ALLYSSA Stop: 05/03/16 21:59 Oxycodone/Acetaminophen (Percocet 5-325 Mg Tablet) 1 tab NG Q4HP PRN PRN Reason: PAIN Stop: 04/10/16 17:28 Pharmacy Profile Note (Medication Communication Order) 1 each [facility] .NOTICE NR Stop: 05/07/16 10:29 Sodium Chloride (Nacl 0.9% Inj/Pf 10 Ml Sdv) 10 ml IV .AFTER EACH USE PRN PRN Reason: AFTER EACH INTERMITTENT USE Stop: 05/07/16 13:22 - Allergies Allergies/Adverse Reactions: ceftriaxone sodium [From Rocephin] Allergy (Severe, Verified 02/07/16 12:41) resp. distress Histamine H2 Inhibitors Allergy (Severe, Verified 02/07/16 12:41) Hives latex [Latex] Allergy (Severe, Verified 02/07/16 12:41) rash Penicillins Allergy (Severe, Verified 02/07/16 12:41) anaphalactic moxifloxacin HCl [From Avelox] Adverse Reaction (Severe, Verified 02/07/16 12:41 ) - Diet/Activity Discharge Diet: Other (Comments) - NPO Discharge Activity: Bedrest Hospital Course Hospital Course: The patient was admitted to the stepdown unit. The patient was maintained with supplemental oxygen w/ face mask, nonrebreather and started on intravenous antibiotic broad-spectrum roldan with intravenous steroids and [id number] bronchodilators. Patient showed very slow improvement with subsequent decrease in oxygen to 6 L via nasal cannula. However she easily desaturates with very little activity. Chest x-ray did not reveal any acute infiltrate. VQ scan was in conclusive and a chest CT scan did not reveal pulmonary embolism but did reveal bibasilar air space disease probably pneumonia. The patient was slowly improving up until earlier today the patient started to develop discomfort again with heart or breathing. Patient desaturation the 80s and has to be placed on 100% nonrebreather. She eventually started feeling fatigue and tired and reports that she couldn't take it anymore. Her pH was normal on ABG as well as the PCO2 and PO2 was in the 60s. Chest x-ray did not reveal any acute worsening. Due to cessation of fatigue and tiredness the patient was transferred to the intensive care unit and electively intubated. Patient was referred to pulmonary service for further evaluation and management. After intubation the patient required significant sedation requiring Versed and Diprivan. Blood pressure was elevated and the patient was placed on nicardipine drip. Eventually a paralytic was started. Patient has calmed down however her oxygenation remains low and O2 saturation in the 80s despite titration of the mechanical ventilator. Pulmonary service recommended the patient to be transferred to a tertiary facility. [facility] in [facility] was contacted and case discussed with Dr. Dale, service promoter salesperson. Patient was accepted for transfer. The rest of the hospital stay is unremarkable. Physical Exam Vital Signs: Temp Pulse Resp BP Pulse Ox 98.4 F 112 H 18 175/119 H 82 L 04/07/16 16:00 04/07/16 16:00 04/07/16 16:00 04/07/16 16:00 04/07/16 16:00 Intake & Output 04/06/16 04/07/16 04/08/16 06:59 06:59 06:59 Intake Total 2776 1475 Output Total 600 250 Balance 2176 1475 -250 Weight 107 kg 108 kg General appearance: PRESENT: morbidly obese, other - Intubated and sedated, paralyzed Head exam: PRESENT: normocephalic Eye exam: PRESENT: conjunctiva pink Ear exam: PRESENT: normal external ear exam. ABSENT: drainage Mouth exam: PRESENT: moist, neck supple Neck exam: ABSENT: JVD Respiratory exam: PRESENT: decreased breath sounds, rhonchi - few. ABSENT: wheezes Cardiovascular exam: PRESENT: RRR, tachycardia GI/Abdominal exam: PRESENT: hypoactive bowel sounds, soft, other - Obese Extremities exam: PRESENT: other - Trace edema Skin exam: PRESENT: dry, warm. ABSENT: cyanosis Results Laboratory Results: 04/07/16 15:45 04/07/16 15:45 04/07/16 04/07/16 04/07/16 09:35 15:15 15:45 WBC 16.3 H RBC 5.14 Hgb 13.0 Hct 39.6 MCV 77 L MCH 25.4 L MCHC 32.9 RDW 15.5 H Plt Count 407 Seg Neutrophils % Not Reportable Lymphocytes % Not Reportable Monocytes % Not Reportable Eosinophils % Not Reportable Basophils % Not Reportable Absolute Neutrophils Not Reportable Absolute Lymphocytes Not Reportable Absolute Monocytes Not Reportable Absolute Eosinophils Not Reportable Absolute Basophils Not Reportable Carbonic Acid 1.16 1.19 HCO3/H2CO3 Ratio 22:1 22:1 ABG pH 7.45 7.44 ABG pCO2 38.7 39.7 ABG pO2 69.3 L 51.8 L ABG HCO3 26.0 26.5 H ABG O2 Saturation 94.6 88.1 L ABG Base Excess 1.9 2.4 FiO2 15L 10 % Sodium Potassium Chloride Carbon Dioxide Anion Gap BUN Creatinine Est GFR ( Amer) Est GFR (Non-Af Amer) Glucose Calcium Total Bilirubin AST ALT Alkaline Phosphatase Total Protein Albumin 04/07/16 15:45 WBC RBC Hgb Hct MCV MCH MCHC RDW Plt Count Seg Neutrophils % Lymphocytes % Monocytes % Eosinophils % Basophils % Absolute Neutrophils Absolute Lymphocytes Absolute Monocytes Absolute Eosinophils Absolute Basophils Carbonic Acid HCO3/H2CO3 Ratio ABG pH ABG pCO2 ABG pO2 ABG HCO3 ABG O2 Saturation ABG Base Excess FiO2 Sodium 139.5 Potassium 4.1 Chloride 97 L Carbon Dioxide 28 Anion Gap 15 BUN 25 H Creatinine 0.82 Est GFR ( Amer) > 60 Est GFR (Non-Af Amer) > 60 Glucose 205 H Calcium 9.1 Total Bilirubin 0.6 AST 21 ALT 49 Alkaline Phosphatase 76 Total Protein 7.3 Albumin 4.0 Impressions: Lung Scan-VQ NM 04/03/16 19:37 IMPRESSION: There are photopenic wedge-shaped segmental defects suggested in the right middle and left lower lobes. Cannot assess for ventilation-perfusion mismatches due to the radiotracer central clumping on ventilation series. If there is persistent concern for pulmonary embolism clinically, CT angiogram chest -PE protocol is recommended to further characterize. Chest/Abdomen CTA 04/04/16 00:00 IMPRESSION: 1. No PE. 2. Bilateral atelectasis versus developing pneumonia. Clinical correlation is needed. Chest X-Ray 04/07/16 13:21 IMPRESSION: Lines and tubes look appropriate. No pneumothorax. Plan Discharge Plan: Transfer to [facility] for further evaluation and management. Time Spent: Greater than 30 Minutes
[2016-04-07] MEDS ORDERED: BUDESONIDE NEB 0.5 MG/2 ML AMPUL NEB SCH (20:00)
[2016-04-07] MEDS ORDERED: ACETYLCYSTEINE 20% SOLN 800 MG/4 ML VIAL.NEB NEB SCH (20:00)
[2016-04-07] MEDS ORDERED: MAGNESIUM SULFATE/D5W 2 GM/200 ML RTUPB IV ONE (21:29)
[2016-04-07 21:58] VITALS: BP 168/103
[2016-04-07] MEDS ORDERED: HYDROCHLOROTHIAZIDE 25 MG TABLET NG SCH (22:00)
[2016-04-07] MEDS ORDERED: MAGNESIUM SULFATE 1 GM/D5W 100 ML IV SCH (22:00)
[2016-04-07] MEDS ORDERED: LISINOPRIL 10 MG TABLET NG SCH (22:00)
[2016-04-07] MEDS ORDERED: MONTELUKAST SODIUM 10 MG TABLET NG SCH (22:00)
[2016-04-08] MEDS ORDERED: LANSOPRAZOLE 30 MG TAB.RAP.DR NG SCH (06:00)
[2016-04-08] MEDS ORDERED: CETIRIZINE 10 MG TABLET NG SCH (10:00)
== END 2016-04-07 22:10 | disposition short-term general hospital (02) | DRG 208 ==
LOC: ER 12:22 → EH 17:16 → UNDOADMIN 19:03 → ICU 04-04 09:36 → 3W 04-04 20:54 → ICU 04-07 11:36
PROVIDERS: ADMIT Family Medicine; ATTEND Family Medicine
PROC: 5A09357 Assistance with Respiratory Ventilation, Less than 24 Consecutive Hours, Continuous Positive Airway Pressure (ICD-10-PCS; 2016-04-03)
PROC: 3E0F7GC Introduction of Other Therapeutic Substance into Respiratory Tract, Via Natural or Artificial Opening (ICD-10-PCS; 2016-04-03)
PROC: 5A1935Z Respiratory Ventilation, Less than 24 Consecutive Hours (ICD-10-PCS; principal; 2016-04-07)
PROC: 0BH17EZ Insertion of Endotracheal Airway into Trachea, Via Natural or Artificial Opening (ICD-10-PCS; 2016-04-07)
PROC: 05HM33Z Insertion of Infusion Device into Right Internal Jugular Vein, Percutaneous Approach (ICD-10-PCS; 2016-04-07)
PROC: B5131ZA Fluoroscopy of Right Jugular Veins using Low Osmolar Contrast, Guidance (ICD-10-PCS; 2016-04-07)
DX: J96.01 Acute respiratory failure with hypoxia (principal); J18.9 Pneumonia, unspecified organism; J45.901 Unspecified asthma with (acute) exacerbation; Z68.41 Body mass index [BMI] 40.0-44.9, adult; E87.6 Hypokalemia; E11.65 Type 2 diabetes mellitus with hyperglycemia; I10 Essential (primary) hypertension; E66.9 Obesity, unspecified; F41.1 Generalized anxiety disorder; M19.90 Unspecified osteoarthritis, unspecified site; Z79.899 Other long term (current) drug therapy; Z88.1 Allergy status to other antibiotic agents; Z88.8 Allergy status to other drugs, medicaments and biological substances; Z88.0 Allergy status to penicillin; Z91.040 Latex allergy status; Z86.711 Personal history of pulmonary embolism; Z85.3 Personal history of malignant neoplasm of breast; Z90.49 Acquired absence of other specified parts of digestive tract
CPT/HCPCS: 31500; 36415; 36600; 71010; 71275; 78582; 80048; 80053; 82550; 82553; 82803; 82962; 83735; 84100; 84443; 84484; 84703; 85025; 85027; 85379; 85610; 85730; 87040; 87804; 93005; 93010; 94002; 94640; 94799; 96365; 99285; A9540; A9567; J0330; J0456; J0743; J1650; J1815; J1940; J2060; J2250; J2704; J2930; J3475; J3480; J3490; J7040; J7060; Q9969

== ENCOUNTER → 2016-08-04 | Outpatient (CLI) | payer MEDICARE | LOC: OD 13:31 | PROVIDERS: ATTEND Internal Medicine Critical Care Medicine | DX: J45.909 Unspecified asthma, uncomplicated (principal); R12 Heartburn; Z87.01 Personal history of pneumonia (recurrent); Z87.09 Personal history of other diseases of the respiratory system; J44.9 Chronic obstructive pulmonary disease, unspecified; R91.8 Other nonspecific abnormal finding of lung field; R06.83 Snoring; G47.34 Idiopathic sleep related nonobstructive alveolar hypoventilation | CPT/HCPCS: 36415; 82785 ==

== ENCOUNTER → 2016-08-04 | Outpatient (CLI) | payer MEDICAID, MEDICARE | LOC: RAD 13:03 | PROVIDERS: ATTEND Internal Medicine Critical Care Medicine | DX: R91.8 Other nonspecific abnormal finding of lung field (principal) | CPT/HCPCS: 71250 ==

== ENCOUNTER 2017-03-06 16:11 | Emergency (ER) | payer MEDICARE ==
--- NOTE | 2017-03-06 18:48 | RADIOLOGY REPORT (SQ) ---
EXAM DESCRIPTION: CHEST PA/LAT COMPLETED DATE/TIME: 03/06/2017 6:40 pm REASON FOR STUDY: sob COMPARISON: 04/07/2016 EXAM PARAMETERS: NUMBER OF VIEWS: two views TECHNIQUE: Digital Frontal and Lateral radiographic views of the chest acquired. RADIATION DOSE: NA LIMITATIONS: none FINDINGS: LUNGS AND PLEURA: No opacities, masses or pneumothorax. No pleural effusion. MEDIASTINUM AND HILAR STRUCTURES: No masses or contour abnormalities. HEART AND VASCULAR STRUCTURES: Heart normal size. No evidence for failure. BONES: No acute findings. HARDWARE: None in the chest. OTHER: No other significant finding. IMPRESSION: NO SIGNIFICANT RADIOGRAPHIC FINDING IN THE CHEST. TECHNICAL DOCUMENTATION: JOB ID: [id number] [employer]- All Rights Reserved
[2017-03-06] MEDS: MAGNESIUM SULFATE/D5W 1 GM/100 ML RTUPB IV SCH ×2 (18:49→20:17)
[2017-03-06] MEDS ORDERED: ACETAMINOPHEN 325 MG TABLET PO ONE (19:06)
[2017-03-06 19:39] LABS: ALANINE AMINOTRANSFERASE 30 U/L (9-52); ALBUMIN 4.5 g/dL (3.5-5.0); ALKALINE PHOSPHATASE 112 U/L (38-126); ANION GAP 14 (5-19); ASPARTATE AMINO TRANSFERASE 17 U/L (14-36); BILIRUBIN,DIRECT 0.4 mg/dL (0.0-0.4); BILIRUBIN,TOTAL 0.6 mg/dL (0.2-1.3); BLOOD UREA NITROGEN 9 mg/dL (7-20); CALCIUM 9.1 mg/dL (8.4-10.2); CARBON DIOXIDE 22 mmol/L (22-30); CHLORIDE 104 mmol/L (98-107); CREATININE RESULT 0.79 mg/dL (0.52-1.25); GLUCOSE 181 mg/dL (75-110); POTASSIUM 3.5 mmol/L (3.6-5.0); SODIUM 139.8 mmol/L (137-145); TOTAL PROTEIN 7.8 g/dL (6.3-8.2)
[2017-03-06 19:43] LABS: HEMATOCRIT 28.5 % (36.0-47.0); HGB HCT DIFFERENCE -1.5; MEAN CORPUSCULAR HEMOGLOBIN 19.7 pg (27.0-33.4); MEAN CORPUSCULAR HGB CONC 31.5 g/dL (32.0-36.0); RED BLOOD COUNT 4.55 10^6/uL (3.72-5.28); RED CELL DISTRIBUTION WIDTH 17.8 % (11.5-14.0); WHITE BLOOD COUNT 12.2 10^3/uL (4.0-10.5)
[2017-03-06 19:59] LABS: BASOPHILS % (MANUAL) 0 % (0-2); EOSINOPHILS % (MANUAL) 0 % (0-6); LYMPHOCYTES % (MANUAL) 5 % (13-45); TOTAL CELLS COUNTED 100
[2017-03-06 20:00] LABS: HYPOCHROMASIA 2+; TOXIC GRANULATION SLIGHT
[2017-03-06 20:01] LABS: ANISOCYTOSIS 1+; MEAN CORPUSCULAR VOLUME 63 fl (80-97); MICROCYTOSIS 3+; POIKILOCYTOSIS SLIGHT
[2017-03-06] MEDS ORDERED: DOXYCYCLINE HYCLATE 100 MG TABLET PO ONE (20:19)
--- NOTE | 2017-03-06 20:19 | ER Document Report ---
ED General - General Chief Complaint: Shortness Of Breath Stated Complaint: TROUBLE BREATHING Time Seen by Provider: 03/06/17 18:15 Mode of Arrival: Medic Information source: Patient Notes: This is a 51-year-old female with a history of COPD/asthma (she has been intubated a number times in the past), history of hypertension. Patient presents to the emergency room with shortness of breath, wheezing in the setting of recent URI. TRAVEL OUTSIDE OF THE [place] IN LAST 30 DAYS: No - HPI Onset: Last week Onset/Duration: Gradual Quality of pain: No pain Severity: None Pain Level: Denies Associated symptoms: Nonproductive cough, Shortness of breath. denies: Fever Exacerbated by: Denies Relieved by: Denies Similar symptoms previously: Yes Recently seen / treated by doctor: Yes - Related Data Allergies/Adverse Reactions: ceftriaxone sodium [From Rocephin] Allergy (Severe, Verified 02/07/16 12:41) resp. distress Histamine H2 Inhibitors Allergy (Severe, Verified 02/07/16 12:41) Hives latex [Latex] Allergy (Severe, Verified 02/07/16 12:41) rash Penicillins Allergy (Severe, Verified 02/07/16 12:41) anaphalactic moxifloxacin HCl [From Avelox] Adverse Reaction (Severe, Verified 02/07/16 12:41 ) Past Medical History - General Information source: Patient - Social History Smoking Status: Unknown if Ever Smoked Cigarette use (# per day): No Chew tobacco use (# tins/day): No Frequency of alcohol use: None Drug Abuse: None Lives with: Spouse/Significant other Family History: CAD, Hypertension, Malignancy Patient has suicidal ideation: No Patient has homicidal ideation: No - Past Medical History Cardiac Medical History: Reports: Hx Hypertension, Hx Pulmonary Embolism Pulmonary Medical History: Reports: Hx Asthma, Hx Pneumonia - 2014, Hx Intubation - x9, Hx Respiratory Failure Renal/ Medical History: Reports: Hx Kidney Stones. Denies: Hx Peritoneal Dialysis Malignancy Medical History: Reports: Hx Breast Cancer Musculoskeltal Medical History: Reports Hx Arthritis - shoulders, hips Psychiatric Medical History: Reports: Hx Anxiety Denies: Hx Depression Past Surgical History: Reports: Hx Abdominal Surgery - hiatal hernia, Hx Breast Surgery - Benign mass removed R breast, Hx Section, Hx Cholecystectomy , Hx Genitourinary Surgery - Hiatal hernia repair, Hx Lumpectomy. Denies: Hx Appendectomy, Hx Bowel Surgery, Hx Coronary Artery Bypass Graft, Hx Gastric Bypass Surgery, Hx Herniorrhaphy, Hx Hysterectomy, Hx Mastectomy, Hx Pacemaker, Hx Tonsillectomy, Hx Tubal Ligation - Immunizations Immunizations up to date: Yes Hx Diphtheria, Pertussis, Tetanus Vaccination: Yes Hx Pneumococcal Vaccination: 04/15/11 Review of Systems - Review of Systems Constitutional: Chills. denies: Fever EENT: No symptoms reported Cardiovascular: No symptoms reported Respiratory: Cough, Short of breath, Wheezing Gastrointestinal: No symptoms reported Genitourinary: No symptoms reported Female Genitourinary: No symptoms reported Musculoskeletal: No symptoms reported Skin: No symptoms reported Hematologic/Lymphatic: No symptoms reported Neurological/Psychological: No symptoms reported Physical Exam - Vital signs Vitals: Temp Pulse Resp BP Pulse Ox 98.0 F 118 H 16 200/137 H 100 03/06/17 16:17 03/06/17 16:17 03/06/17 16:17 03/06/17 16:17 03/06/17 16:17 Notes: Physical exam: GENERAL: 51-year-old female, alert and oriented 3, no acute distress. Patient states she feels better after number of treatments today. HEAD: Atraumatic, normocephalic. EYES: Pupils equal round and reactive to light, extraocular movements intact, sclera anicteric, conjunctiva are normal. ENT: TMs normal, nares patent, oropharynx clear without exudates. Moist mucous membranes. NECK: Normal range of motion, supple without obvious mass or JVD. LUNGS: Breath sounds clear to auscultation bilaterally and equal. No wheezes rales or rhonchi. HEART: Regular rate and rhythm without murmurs, rubs or gallops. ABDOMEN: Soft, normoactive bowel sounds. No tenderness to palpation. No guarding, no rebound. No masses appreciated. EXTREMITIES: Normal range of motion, no pitting or edema. No clubbing or cyanosis. NEUROLOGICAL: Cranial nerves II through XII grossly intact. Normal speech, moving all extremities. PSYCH: Normal mood, normal affect. SKIN: Warm, Dry, normal turgor, no rashes or lesions noted. Course - Re-evaluation Re-evalutation: 03/06/17 20:18 Note: Patient doing much better on exam. She is currently eating a sandwich and comfortable. I have given her the option of bringing her in for continued nebulizer treatments (given her strong history of respiratory failure in the past). She would like to try and go home. I did review the labs with her and the anemia that she has had compared to labs from April of this past year. She does state that she knows about the anemia and has been taking iron lately. She does report that she had a problem with vaginal bleeding and recently had a D&C and the bleeding has improved. As mentioned, she has been addressing the anemia with iron supplementation. She will follow-up with her doctor regarding this. - Vital Signs Vital signs: Temp Pulse Resp BP Pulse Ox 98.0 F 118 H 17 192/105 H 93 03/06/17 16:17 03/06/17 16:17 03/06/17 22:16 03/06/17 22:17 03/06/17 22:16 - Laboratory Result Diagrams: 03/06/17 19:11 03/06/17 19:11 Laboratory results interpreted by me: 03/06/17 03/06/17 19:11 19:11 WBC 12.2 H Hgb 9.0 L Hct 28.5 L MCV 63 L MCH 19.7 L MCHC 31.5 L RDW 17.8 H Seg Neuts % (Manual) 92 H Lymphocytes % (Manual) 5 L Abs Neuts (Manual) 11.2 H Potassium 3.5 L Glucose 181 H - Diagnostic Test Radiology reviewed: Image reviewed, Reports reviewed - Chest x-ray shows no infiltrates Discharge - Discharge Clinical Impression: Asthma exacerbation Condition: Stable Disposition: HOME, SELF-CARE Additional Instructions: Recommendations: Rest, drink plenty of fluids, take antibiotics as prescribed, take steroids is prescribed, continue current medicines. Follow-up with your hostel parent, return to the emergency room for worsening shortness of breath. Prescriptions: Doxycycline Hyclate 100 mg PO BID #20 capsule Prednisone 60 mg PO DAILY #21 tablet Referrals: RAGHU ORELLANA MD [ACTIVE STAFF] - Follow up as needed
[2017-03-06] MEDS ORDERED: ACETYLCYSTEINE 20% SOLN 800 MG/4 ML VIAL.NEB NEB ONE (21:19)
[2017-03-06] MEDS ORDERED: IPRATROPIUM/ALBUTEROL 0.5-2.5 MG/3 ML AMPUL NEB ONE (21:28)
[2017-03-06] MEDS ORDERED: METHYLPREDNISOLONE INJ 125 MG/2 ML SDV IV ONE (22:00)
[2017-03-06 22:19] VITALS: BP 192/105
== END 2017-03-06 22:25 | disposition home or self-care (01) ==
LOC: ER 16:11
DX: J44.9 Chronic obstructive pulmonary disease, unspecified (principal); D64.9 Anemia, unspecified; I10 Essential (primary) hypertension; R05 Cough; R06.02 Shortness of breath; Z88.1 Allergy status to other antibiotic agents; Z88.0 Allergy status to penicillin; Z91.040 Latex allergy status; Z88.8 Allergy status to other drugs, medicaments and biological substances; Z86.711 Personal history of pulmonary embolism; Z87.01 Personal history of pneumonia (recurrent); Z85.3 Personal history of malignant neoplasm of breast; Z79.899 Other long term (current) drug therapy; Z98.890 Other specified postprocedural states
CPT/HCPCS: 94640; 99285; 96375; 96365; 96366; 36415; 85025; 80053; 71020; A9270 ×3; J2930; J3475; J7620

== ENCOUNTER 2017-04-10 13:40 | Emergency (ER) | payer MEDICARE ==
[2017-04-10 15:29] LABS: APPEARANCE,URINE SLIGHTLY-CLOUDY; BILIRUBIN,URINE NEGATIVE (NEGATIVE); COLOR,URINE YELLOW; GLUCOSE, URINE NEGATIVE (NEGATIVE); KETONES,URINE NEGATIVE (NEGATIVE); LEUKOCYTE ESTERASE,URINE SMALL (NEGATIVE); NITRITE,URINE NEGATIVE (NEGATIVE); PROTEIN,URINE NEGATIVE (NEGATIVE); URINE SPECIFIC GRAVITY 1.015; UROBILINOGEN,URINE NEGATIVE mg/dL (<2.0)
--- NOTE | 2017-04-10 15:47 | ER Document Report ---
HPI - HPI Patient complains to provider of: sweet urine smell and sett taste in mouth Onset: Yesterday Onset/Duration: Sudden Pain Level: Denies Context: 51 yo female worried that she is a diabetic because of the sweet smell of urine and taste in her mouth this morning. Associated Symptoms: None Relieved by: Denies - ROS ROS below otherwise negative: Yes Systems Reviewed and Negative: Yes All other systems reviewed and negative - REPRODUCTIVE LMP: 1 month ago Past Medical History - General Information source: Patient - Social History Smoking Status: Never Smoker Frequency of alcohol use: None Drug Abuse: None Family History: CAD, Hypertension, Malignancy Patient has suicidal ideation: No Patient has homicidal ideation: No - Past Medical History Cardiac Medical History: Reports: Hx Hypertension, Hx Pulmonary Embolism Pulmonary Medical History: Reports: Hx Asthma, Hx Pneumonia - 2014, Hx Intubation - x9, Hx Respiratory Failure Renal/ Medical History: Reports: Hx Kidney Stones. Denies: Hx Peritoneal Dialysis Malignancy Medical History: Reports: Hx Breast Cancer Musculoskeltal Medical History: Reports Hx Arthritis - shoulders, hips Psychiatric Medical History: Reports: Hx Anxiety Denies: Hx Depression Past Surgical History: Reports: Hx Abdominal Surgery - hiatal hernia, Hx Breast Surgery - Benign mass removed R breast, Hx Section, Hx Cholecystectomy , Hx Genitourinary Surgery - Hiatal hernia repair, Hx Lumpectomy - Immunizations Immunizations up to date: Yes Hx Diphtheria, Pertussis, Tetanus Vaccination: Yes Hx Pneumococcal Vaccination: 04/15/11 Vertical Provider Document - CONSTITUTIONAL Agree With Documented VS: Yes Exam Limitations: No Limitations General Appearance: No Apparent Distress - INFECTION CONTROL TRAVEL OUTSIDE OF THE [place] IN LAST 30 DAYS: No - HEENT HEENT: Normal ENT Exam - NECK Neck: Supple, Thyroid Normal. negative: Lymphadenopathy-Left, Lymphadenopathy- Right - RESPIRATORY Respiratory: Breath Sounds Normal, No Respiratory Distress O2 Sat by Pulse Oximetry: 99 - CARDIOVASCULAR Cardiovascular: Regular Rate, Regular Rhythm - GI/ABDOMEN Gastrointestinal: Abdomen Soft, Abdominal Rebound, No Organomegaly - MUSCULOSKELETAL/EXTREMETIES Musculoskeletal/Extremeties: DOMENICA GAVIRIA - NEURO Level of Consciousness: Awake, Alert Motor/Sensory: No Motor Deficit, No Sensory Deficit - DERM Integumentary: Warm, Dry, No Rash Course - Vital Signs Vital signs: Temp Pulse Resp BP Pulse Ox 98.8 F 90 20 177/99 H 99 04/10/17 13:48 04/10/17 13:48 04/10/17 13:48 04/10/17 13:48 04/10/17 13:48 - Laboratory Laboratory results interpreted by me: 04/10/17 14:55 Ur Leukocyte Esterase SMALL H Discharge - Discharge Clinical Impression: Hypertension Urinary tract infection Qualifiers: Urinary tract infection type: site unspecified Hematuria presence: without hematuria Qualified Code(s): N39.0 - Urinary tract infection, site not specified Condition: Good Disposition: HOME, SELF-CARE Instructions: Family Physicians / Practices, Trimethoprim-Sulfa ([facility]), Urinary Tract Infection ([facility]) Additional Instructions: urine culture is pending Return to the emergency room if worse List of family practice doctors given to you Prescriptions: Sulfamethoxazole/Trimethoprim [Sulfamethoxazole-Tmp Ds Tablet] 1 each PO BID # 14 tablet
[2017-04-10 17:03] VITALS: BP 166/94
== END 2017-04-10 17:03 | disposition home or self-care (01) ==
LOC: ER 13:40
DX: N39.0 Urinary tract infection, site not specified (principal); I10 Essential (primary) hypertension; E11.9 Type 2 diabetes mellitus without complications
CPT/HCPCS: 81001; 87086; 87088; 87186; 99283

== ENCOUNTER 2017-08-01 17:37 | Emergency (ER) | payer MEDICARE ==
--- NOTE | 2017-08-01 18:44 | ER Document Report ---
ED Medical Screen (RME) - General Chief Complaint: Shortness Of Breath Stated Complaint: BREATHING PROBLEMS Time Seen by Provider: 08/01/17 18:41 Notes: Patient says that she has been having difficulty breathing and shortness of breath with a cough for the past week or 10 days. She also had a fever. Her doctor put her on a Z-Homar and a course of prednisone about a week ago. She is finished those medications and not showing improvement. She is maintained on albuterol nebulized times a day, Xopenex twice a day, BREO inhaler. Patient has been coughing up clear thick sputum. Says she has had a low-grade fever. She said that she has been intubated 11 times in the past. TRAVEL OUTSIDE OF THE [place] IN LAST 30 DAYS: No - Related Data Allergies/Adverse Reactions: ceftriaxone sodium [From Rocephin] Allergy (Severe, Verified 08/01/17 17:38) resp. distress Histamine H2 Inhibitors Allergy (Severe, Verified 08/01/17 17:38) Hives latex [Latex] Allergy (Severe, Verified 08/01/17 17:38) rash Penicillins Allergy (Severe, Verified 08/01/17 17:38) anaphalactic moxifloxacin HCl [From Avelox] Adverse Reaction (Severe, Verified 08/01/17 17:38 ) Past Medical History - Social History Family history: Hypertension, Malignancy, Other - asthma - Past Medical History Cardiac Medical History: Reports: Hx Hypertension, Hx Pulmonary Embolism Pulmonary Medical History: Reports: Hx Asthma, Hx Pneumonia - 2014, Hx Intubation - x9, Hx Respiratory Failure Renal/ Medical History: Reports: Hx Kidney Stones. Denies: Hx Peritoneal Dialysis Malignancy Medical History: Reports: Hx Breast Cancer Musculoskeltal Medical History: Reports Hx Arthritis - shoulders, hips Psychiatric Medical History: Reports: Hx Anxiety Denies: Hx Depression Past Surgical History: Reports: Hx Abdominal Surgery - hiatal hernia, Hx Breast Surgery - Benign mass removed R breast, Hx Section, Hx Cholecystectomy , Hx Genitourinary Surgery - Hiatal hernia repair, Hx Lumpectomy. Denies: Hx Appendectomy, Hx Bowel Surgery, Hx Coronary Artery Bypass Graft, Hx Gastric Bypass Surgery, Hx Herniorrhaphy, Hx Hysterectomy, Hx Mastectomy, Hx Pacemaker, Hx Tonsillectomy, Hx Tubal Ligation - Immunizations Immunizations up to date: Yes Hx Diphtheria, Pertussis, Tetanus Vaccination: Yes
[2017-08-01] MEDS ORDERED: METHYLPREDNISOLONE INJ 125 MG/2 ML SDV IV ONE (18:45)
[2017-08-01] MEDS ORDERED: IPRATROPIUM/ALBUTEROL 0.5-2.5 MG/3 ML AMPUL NEB ONE ×2 (19:48→20:42)
--- NOTE | 2017-08-01 19:53 | ER Document Report ---
ED Respiratory Problem - General Chief Complaint: Shortness Of Breath Stated Complaint: BREATHING PROBLEMS Time Seen by Provider: 08/01/17 18:41 Mode of Arrival: Ambulatory Information source: Patient Notes: Patient is a 51-year-old female who presents to the emergency department with complaints of difficulty breathing shortness of breath. Patient states for the last 10 days she has had these symptoms along with cough with thick productive mucus as well as fever as high as 102 earlier today. Patient reports that she was seen by her general assignment reporter, Dr. Rojas, and placed on prednisone and azithromycin which she has completed. Patient reports that she is not getting any better. Patient takes albuterol and Xopenex at home through a nebulizer machine. Patient states that she has been intubated multiple times for her asthma exacerbations with the last intubation being a year and a half ago. Patient denies any nausea vomiting or diarrhea. Patient reports medical history of hypertension,pulmonary embolisms, asthma, and pneumonia. TRAVEL OUTSIDE OF THE [place] IN LAST 30 DAYS: No - Related Data Allergies/Adverse Reactions: ceftriaxone sodium [From Rocephin] Allergy (Severe, Verified 08/01/17 17:38) resp. distress Histamine H2 Inhibitors Allergy (Severe, Verified 08/01/17 17:38) Hives latex [Latex] Allergy (Severe, Verified 08/01/17 17:38) rash Penicillins Allergy (Severe, Verified 08/01/17 17:38) anaphalactic moxifloxacin HCl [From Avelox] Adverse Reaction (Severe, Verified 08/01/17 17:38 ) Past Medical History - General Information source: Patient - Social History Smoking Status: Never Smoker Family History: CAD, Hypertension, Malignancy Patient has suicidal ideation: No Patient has homicidal ideation: No - Past Medical History Cardiac Medical History: Reports: Hx Hypertension, Hx Pulmonary Embolism Pulmonary Medical History: Reports: Hx Asthma, Hx Pneumonia - 2014, Hx Intubation - x9, Hx Respiratory Failure Renal/ Medical History: Reports: Hx Kidney Stones. Denies: Hx Peritoneal Dialysis Malignancy Medical History: Reports: Hx Breast Cancer Musculoskeltal Medical History: Reports Hx Arthritis - shoulders, hips Psychiatric Medical History: Reports: Hx Anxiety Denies: Hx Depression Past Surgical History: Reports: Hx Abdominal Surgery - hiatal hernia, Hx Breast Surgery - Benign mass removed R breast, Hx Section, Hx Cholecystectomy , Hx Genitourinary Surgery - Hiatal hernia repair, Hx Lumpectomy. Denies: Hx Appendectomy, Hx Bowel Surgery, Hx Coronary Artery Bypass Graft, Hx Gastric Bypass Surgery, Hx Herniorrhaphy, Hx Hysterectomy, Hx Mastectomy, Hx Pacemaker, Hx Tonsillectomy, Hx Tubal Ligation - Immunizations Immunizations up to date: Yes Hx Diphtheria, Pertussis, Tetanus Vaccination: Yes Hx Pneumococcal Vaccination: 04/15/11 Review of Systems - Review of Systems EENT: No symptoms reported Cardiovascular: No symptoms reported Respiratory: No symptoms reported Gastrointestinal: No symptoms reported Genitourinary: No symptoms reported Female Genitourinary: No symptoms reported Musculoskeletal: No symptoms reported Skin: No symptoms reported Hematologic/Lymphatic: No symptoms reported Neurological/Psychological: No symptoms reported Physical Exam - Vital signs Vitals: Resp Pulse Ox 20 93 08/01/17 20:08 08/01/17 20:08 - Notes Notes: PHYSICAL EXAMINATION: GENERAL: Well-appearing, well-nourished and in no acute distress. HEAD: Atraumatic, normocephalic. EYES: Pupils equal round and reactive to light, extraocular movements intact, conjunctiva are normal. ENT: Nares patent, oropharynx clear without exudates. Moist mucous membranes. NECK: Normal range of motion, supple without lymphadenopathy LUNGS: Expiratory and expiratory wheezing bilaterally. HEART: Regular rate and rhythm without murmurs ABDOMEN: Soft, nontender, nondistended abdomen. No guarding, no rebound. No masses appreciated. Female : deferred Musculoskeletal: Normal range of motion, no pitting or edema. No cyanosis. NEUROLOGICAL: Cranial nerves grossly intact. Normal speech, normal gait. Normal sensory, motor exams PSYCH: Normal mood, normal affect. SKIN: Warm, Dry, normal turgor, no rashes or lesions noted. Course - Re-evaluation Re-evalutation: Patient presents with complaint of shortness of breath and fever at home. Patient reports that she saw her general assignment reporter last week and was placed on azithromycin and prednisone. Patient states that she finished these courses and has not had any improvement. Patient reports that she has had intubations in the past due to her asthma exacerbations and that she came and was starting to get worse. Patient reports that her shortness of breath is worse with ambulation. Patient does have expiratory and expiratory wheezing bilaterally. Will treat patient with 2 g of mag sulfate IV, DuoNeb's and will consider antibiotics based upon the fact the patient has had a fever intermittently. Reassessment patient after breathing treatments and mag sulfate shows marked improvement. Patient's lung sounds are clear. Patient was ambulated around the department with a pulse ox and pulse ox maintained in the 95% range. Patient will be given an IV dose of doxycycline and then will be discharged with p.o. doxycycline and a prednisone taper pack. Patient and spouse feel comfortable going home patient understands strict ED return precautions. - Vital Signs Vital signs: Temp Pulse Resp BP Pulse Ox 98 F 20 116/70 92 08/02/17 01:51 08/02/17 01:00 08/02/17 01:51 08/02/17 01:00 - Laboratory Result Diagrams: 08/01/17 20:08 08/01/17 20:08 Laboratory results interpreted by me: 08/01/17 08/01/17 08/01/17 20:08 20:08 20:23 WBC 13.9 H Hgb 9.2 L Hct 30.3 L MCV 61 L MCH 18.5 L MCHC 30.4 L RDW 18.4 H Eosinophils % 7.3 H Absolute Neutrophils 9.3 H Absolute Eosinophils 1.0 H VBG pH 7.44 H Glucose 125 H Discharge - Discharge Clinical Impression: Wheezing, Productive cough Asthma Qualifiers: Asthma severity: unspecified severity Asthma persistence: unspecified Asthma complication type: unspecified Qualified Code(s): J45.909 - Unspecified asthma, uncomplicated Fever Qualifiers: Fever type: unspecified Qualified Code(s): R50.9 - Fever, unspecified Condition: Stable Disposition: HOME, SELF-CARE Additional Instructions: Asthma You have been diagnosed as having asthma. This is a condition where there is episodic tightness in the bronchial tubes. Allergies, infections, and polluted or cold air may be contributing factors. Emergency treatment of a severe asthma attack may include adrenaline shots , or bronchodilator aerosol. You may feel lightheaded, have a decreased exercise tolerance and a rapid pulse for an hour or two. Rest and get plenty of fluids. Home treatment of asthma requires bronchodilator drugs. These can be administered by injection, inhalation, or by mouth. Antibiotics and corticosteroids may be required for some patients. You should avoid chemical fumes, dusts, pollens, and exercising in very cold or dry air. If you smoke, stop!! If you develop a fever, increased wheezing, chest pain, or severe shortness of breath, you should contact the doctor immediately Please follow-up with your primary care physician in the next 3-5 days for a recheck. Return to the emergency department if you develop worsening fever but cannot be relieved by ibuprofen or acetaminophen, worsening shortness of breath , or any other symptoms that are concerning to you. Prescriptions: Doxycycline Hyclate 100 mg PO BID #14 capsule Prednisone 10 mg PO ASDIR #21 tablet
[2017-08-01] MEDS: MAGNESIUM SULFATE/D5W 1 GM/100 ML RTUPB IV SCH ×2 (20:02→20:48)
--- NOTE | 2017-08-01 20:04 | RADIOLOGY REPORT (SQ) ---
EXAM DESCRIPTION: CHEST 2 VIEWS COMPLETED DATE/TIME: 08/01/2017 7:40 pm REASON FOR STUDY: Difficulty breathing and wheezing and history asth COMPARISON: 03/06/2017 EXAM PARAMETERS: NUMBER OF VIEWS: two views TECHNIQUE: Digital Frontal and Lateral radiographic views of the chest acquired. RADIATION DOSE: NA LIMITATIONS: none FINDINGS: LUNGS AND PLEURA: No acute opacities, masses or pneumothorax. No pleural effusion. MEDIASTINUM AND HILAR STRUCTURES: No masses or contour abnormalities. HEART AND VASCULAR STRUCTURES: Heart normal size. No evidence for failure. BONES: No acute findings. HARDWARE: None in the chest. OTHER: No other significant finding. IMPRESSION: NO ACUTE RADIOGRAPHIC FINDING IN THE CHEST. TECHNICAL DOCUMENTATION: JOB ID: [id number] 2010 [employer]- All Rights Reserved Reading location - IP/workstation name: [email or web address]
[2017-08-01 20:38] LABS: VENOUS BLOOD HCO3 25.1 mmol/L (20-32); VENOUS BLOOD PH 7.44 (7.30-7.42)
[2017-08-01 20:38] LABS: ABSOLUTE BASOPHILS # (AUTO) 0.2 10^3/uL (0.0-0.2); ABSOLUTE LYMPHOCYTES (AUTO) 2.7 10^3/uL (0.5-4.7); ABSOLUTE MONOCYTES (AUTO) 0.6 10^3/uL (0.1-1.4); ABSOLUTE NEUT (AUTO) 9.3 10^3/uL (1.7-8.2); BASOPHILS % (AUTO) 1.8 % (0-2); EOSINOPHILS % (AUTO) 7.3 % (0-6); HEMATOCRIT 30.3 % (36.0-47.0); HEMOGLOBIN 9.2 g/dL (12.0-15.5); LYMPHOCYTES % (AUTO) 19.4 % (13-45); MEAN CORPUSCULAR HEMOGLOBIN 18.5 pg (27.0-33.4); MEAN CORPUSCULAR HGB CONC 30.4 g/dL (32.0-36.0); MONOCYTES % (AUTO) 4.5 % (3-13); RED BLOOD COUNT 4.96 10^6/uL (3.72-5.28); RED CELL DISTRIBUTION WIDTH 18.4 % (11.5-14.0); TOTAL CELLS COUNTED % (AUTO) 100 %; WHITE BLOOD COUNT 13.9 10^3/uL (4.0-10.5)
[2017-08-01 20:54] LABS: ALANINE AMINOTRANSFERASE 35 U/L (9-52); ALBUMIN 4.3 g/dL (3.5-5.0); ALKALINE PHOSPHATASE 93 U/L (38-126); ANION GAP 14 (5-19); ASPARTATE AMINO TRANSFERASE 22 U/L (14-36); BILIRUBIN,DIRECT 0.3 mg/dL (0.0-0.4); BILIRUBIN,TOTAL 0.6 mg/dL (0.2-1.3); BLOOD UREA NITROGEN 10 mg/dL (7-20); CALCIUM 8.8 mg/dL (8.4-10.2); CARBON DIOXIDE 24 mmol/L (22-30); CHLORIDE 104 mmol/L (98-107); GLUCOSE 125 mg/dL (75-110); POTASSIUM 3.7 mmol/L (3.6-5.0); SODIUM 142.4 mmol/L (137-145); TOTAL PROTEIN 7.5 g/dL (6.3-8.2)
[2017-08-01 20:58] LABS: ANISOCYTOSIS 2+; PLATELET COMMENT DECREASED
[2017-08-01 20:59] LABS: OVALOCYTES SLIGHT; POIKILOCYTOSIS SLIGHT
[2017-08-01 21:03] LABS: MEAN CORPUSCULAR VOLUME 61 fl (80-97); PLATELET COUNT 156 10^3/uL (150-450)
[2017-08-01] MEDS ORDERED: DOXYCYCLINE HYCLATE INJ 100 MG VIAL IV ONE (23:03)
[2017-08-02 01:52] VITALS: BP 116/70
[2017-08-03 14:46] LABS: PATH REVIEW PATHOLOGIST REVIEWED
== END 2017-08-02 01:45 | disposition home or self-care (01) ==
LOC: ER 17:37
DX: J45.909 Unspecified asthma, uncomplicated (principal); Z79.899 Other long term (current) drug therapy; R06.02 Shortness of breath; R50.9 Fever, unspecified; I10 Essential (primary) hypertension; Z86.711 Personal history of pulmonary embolism; Z87.01 Personal history of pneumonia (recurrent); Z88.1 Allergy status to other antibiotic agents; Z88.8 Allergy status to other drugs, medicaments and biological substances; Z91.040 Latex allergy status; Z87.892 Personal history of anaphylaxis; Z88.0 Allergy status to penicillin; Z85.3 Personal history of malignant neoplasm of breast
CPT/HCPCS: 94640 ×2; 99285; 96375; 96365; 96366; 96367; 36415; 85025; 80053; 84484; 82803; 71046; J3490; J2930; J3475; A9270; J7620

== ENCOUNTER 2018-03-08 19:52 | Emergency (ER) | payer MEDICARE ==
[2018-03-08 21:08] LABS: ABSOLUTE BASOPHILS # (AUTO) 0.2 10^3/uL (0.0-0.2); ABSOLUTE EOSINOPHILS # (AUTO) 0.7 10^3/uL (0.0-0.6); ABSOLUTE LYMPHOCYTES (AUTO) 2.9 10^3/uL (0.5-4.7); ABSOLUTE MONOCYTES (AUTO) 0.6 10^3/uL (0.1-1.4); BASOPHILS % (AUTO) 2.4 % (0-2); EOSINOPHILS % (AUTO) 7.5 % (0-6); HEMATOCRIT 30.7 % (36.0-47.0); HEMOGLOBIN 9.7 g/dL (12.0-15.5); LYMPHOCYTES % (AUTO) 30.4 % (13-45); MEAN CORPUSCULAR HEMOGLOBIN 19.3 pg (27.0-33.4); MEAN CORPUSCULAR HGB CONC 31.6 g/dL (32.0-36.0); MONOCYTES % (AUTO) 6.7 % (3-13); PLATELET COUNT 398 10^3/uL (150-450); RED BLOOD COUNT 5.04 10^6/uL (3.72-5.28); RED CELL DISTRIBUTION WIDTH 18.4 % (11.5-14.0); TOTAL CELLS COUNTED % (AUTO) 100 %; WHITE BLOOD COUNT 9.4 10^3/uL (4.0-10.5)
[2018-03-08 21:14] LABS: ALANINE AMINOTRANSFERASE 19 U/L (9-52); ALBUMIN 4.3 g/dL (3.5-5.0); ALKALINE PHOSPHATASE 94 U/L (38-126); ANION GAP 15 (5-19); ASPARTATE AMINO TRANSFERASE 24 U/L (14-36); BILIRUBIN,DIRECT 0.2 mg/dL (0.0-0.4); BILIRUBIN,TOTAL 0.5 mg/dL (0.2-1.3); BLOOD UREA NITROGEN 10 mg/dL (7-20); CALCIUM 9.2 mg/dL (8.4-10.2); CARBON DIOXIDE 25 mmol/L (22-30); CHLORIDE 103 mmol/L (98-107); CREATINE KINASE 79 U/L (30-135); GLUCOSE 113 mg/dL (75-110); POTASSIUM 3.8 mmol/L (3.6-5.0); TOTAL PROTEIN 7.5 g/dL (6.3-8.2)
[2018-03-08 21:26] LABS: CREATINE KINASE MB 0.84 ng/mL (<4.55)
[2018-03-08 21:27] LABS: TROPONIN I < 0.012 ng/mL
[2018-03-08 21:50] LABS: ANISOCYTOSIS 2+; PLATELET COMMENT ADEQUATE
[2018-03-08 21:51] LABS: MEAN CORPUSCULAR VOLUME 61 fl (80-97); OVALOCYTES SLIGHT; POIKILOCYTOSIS SLIGHT
--- NOTE | 2018-03-08 22:04 | RADIOLOGY REPORT (SQ) ---
EXAM DESCRIPTION: XR CHEST 1 VIEW COMPLETED DATE/TME: 03/08/2018 20:39 CLINICAL HISTORY: 52 years, Female, SOB Compared to 03/06/2017. Findings: Heart is moderately enlarged. Lungs are clear. No consolidation or pneumothorax. IMPRESSION: No acute disease.
[2018-03-08 22:52] LABS: APPEARANCE,URINE CLEAR; BILIRUBIN,URINE NEGATIVE (NEGATIVE); COLOR,URINE STRAW; GLUCOSE, URINE NEGATIVE (NEGATIVE); KETONES,URINE NEGATIVE (NEGATIVE); LEUKOCYTE ESTERASE,URINE TRACE (NEGATIVE); NITRITE,URINE NEGATIVE (NEGATIVE); PROTEIN,URINE NEGATIVE (NEGATIVE); URINE SPECIFIC GRAVITY 1.011; UROBILINOGEN,URINE NEGATIVE mg/dL (<2.0)
[2018-03-08 23:05] LABS: URINE AMPHETAMINES SCREEN NEGATIVE; URINE BARBITURATES SCREEN NEGATIVE; URINE BENZODIAZEPINES SCREEN NEGATIVE; URINE COCAINE SCREEN NEGATIVE; URINE MARIJUANA (THC) SCREEN NEGATIVE; URINE METHADONE SCREEN NEGATIVE; URINE PHENCYCLIDINE SCREEN NEGATIVE
--- NOTE | 2018-03-08 23:07 | ER Document Report ---
ED Cardiac - General Chief Complaint: Chest Pain Stated Complaint: CHEST PAIN Time Seen by Provider: 03/08/18 21:38 Mode of Arrival: Ambulatory Information source: Patient, Relative Notes: 52-year-old female with history of hypertension and asthma presents with sudden onset left-sided chest pain with radiation to her left arm. Patient reports symptoms began suddenly, aching or dullness in nature, no associated shortness of breath or exertional component. Symptoms have now resolved, denies having similar symptoms in the past. Patient reports having normal stress test "years ago." Currently the patient feels to be back to her baseline. She denies any known cardiac history. TRAVEL OUTSIDE OF THE [place] IN LAST 30 DAYS: No - HPI Patient complains to provider of: Chest pain, Chest tightness. denies: Palpitations, Shortness of breath Use of: denies: Alcohol, Amphetamines, Bath salts, Caffeine, Cocaine, Decongestants, Other Was the onset of pain: Sudden Is the pain a: New problem Chest pain location: Under breast Quality of pain: Mild, Achy, Dull Chest pain radiation location: Left arm. denies: Left jaw Severity now: None Severity at worst: Mild Pain level currently: Denies Chest pain precipitating factors: None Cardiac risk factors: Hypertension. denies: Diabetes, Smoker Positive cardiac history: No Associated symptoms: Shortness of breath. denies: Palpitations Exacerbated by: Denies Relieved by: Nothing Similar symptoms previously: No Recently seen / treated by doctor: No - Related Data Allergies/Adverse Reactions: ceftriaxone sodium [From Rocephin] Allergy (Severe, Verified 08/01/17 17:38) resp. distress Histamine H2 Inhibitors Allergy (Severe, Verified 08/01/17 17:38) Hives latex [Latex] Allergy (Severe, Verified 08/01/17 17:38) rash Penicillins Allergy (Severe, Verified 08/01/17 17:38) anaphalactic moxifloxacin HCl [From Avelox] Adverse Reaction (Severe, Verified 08/01/17 17:38 ) Past Medical History - General Information source: Patient, Relative - Social History Smoking Status: Never Smoker Cigarette use (# per day): No Chew tobacco use (# tins/day): No Smoking Education Provided: No Frequency of alcohol use: None Drug Abuse: None Lives with: Family Family History: CAD, Hypertension, Malignancy Patient has suicidal ideation: No Patient has homicidal ideation: No - Medical History Medical History: Other - HTN, Asthma - Past Medical History Cardiac Medical History: Reports: Hx Hypertension, Hx Pulmonary Embolism Pulmonary Medical History: Reports: Hx Asthma, Hx Pneumonia - 2014, Hx Intubation - x9, Hx Respiratory Failure EENT Medical History: Reports: None Neurological Medical History: Reports: None Endocrine Medical History: Reports: None Renal/ Medical History: Reports: Hx Kidney Stones. Denies: Hx Peritoneal Dialysis Malignancy Medical History: Reports: Hx Breast Cancer GI Medical History: Reports: None Musculoskeletal Medical History: Reports Hx Arthritis - shoulders, hips Skin Medical History: Reports None Psychiatric Medical History: Reports: Hx Anxiety Denies: Hx Depression Traumatic Medical History: Reports: None Infectious Medical History: Reports: None Past Surgical History: Reports: Hx Abdominal Surgery - hiatal hernia, Hx Section, Hx Cholecystectomy, Hx Genitourinary Surgery - Hiatal hernia repair, Hx Lumpectomy. Denies: Hx Appendectomy, Hx Bowel Surgery, Hx Coronary Artery Bypass Graft, Hx Gastric Bypass Surgery, Hx Herniorrhaphy, Hx Hysterectomy, Hx Mastectomy, Hx Pacemaker, Hx Tonsillectomy, Hx Tubal Ligation. Comment Only: Hx Breast Surgery - Benign mass removed R breast - Immunizations Immunizations up to date: Yes Hx Diphtheria, Pertussis, Tetanus Vaccination: Yes Hx Pneumococcal Vaccination: 04/15/11 Review of Systems - Review of Systems Constitutional: No symptoms reported EENT: No symptoms reported Cardiovascular: Chest pain. denies: Palpitations, Dizziness, Lightheaded Respiratory: Cough, Short of breath. denies: Hemoptysis, Sputum Gastrointestinal: No symptoms reported Genitourinary: No symptoms reported Female Genitourinary: No symptoms reported Musculoskeletal: No symptoms reported Skin: No symptoms reported Hematologic/Lymphatic: No symptoms reported Neurological/Psychological: No symptoms reported -: Yes All other systems reviewed and negative Physical Exam - Vital signs Vitals: Pulse Resp BP Pulse Ox 110 H 20 213/102 H 100 03/08/18 20:02 03/08/18 20:02 03/08/18 20:02 03/08/18 20:02 - General General appearance: Appears well In distress: None - HEENT Head: Normocephalic, Atraumatic Eyes: Normal Pupils: PERRL - Respiratory Respiratory status: No respiratory distress Chest status: Nontender Breath sounds: Normal Chest palpation: Normal - Cardiovascular Rhythm: Regular Heart sounds: Normal auscultation Murmur: No Pulses: Normal: Radial, Carotid, Femoral Normal capillary refill: Yes - Abdominal Inspection: Normal Distension: No distension Bowel sounds: Normal Tenderness: Nontender Organomegaly: No organomegaly - Rectal Tenderness: No - Deferred - Genitourinary Notes: Deferred - Back Back: Normal, Nontender - Extremities General upper extremity: Normal inspection, Nontender, Normal color, Normal ROM , Normal temperature General lower extremity: Normal inspection, Nontender, Normal color, Normal ROM , Normal temperature, Normal weight bearing. No: Grzegorz's sign - Neurological Neuro grossly intact: Yes Cognition: Normal Orientation: AAOx4 [place] Coma Scale Eye Opening: Spontaneous Jorje Coma Scale Verbal: Oriented Jorje Coma Scale Motor: Obeys Commands [place] Coma Scale Total: 15 Speech: Normal Motor strength normal: LUE, RUE, LLE, RLE Sensory: Normal - Psychological Associated symptoms: Normal affect, Normal mood - Skin Skin Temperature: Warm Skin Moisture: Dry Skin Color: Normal Course - Re-evaluation Re-evalutation: 03/09/18 02:26 Blood work, including 2 sets of cardiac enzymes, is negative. Chest x-ray also shows no evidence of acute pathology. Patient was instructed to follow-up with her primary physician and discuss outpatient provocative testing. Patient is in agreement and understands the plan. - Vital Signs Vital signs: Temp Pulse Resp BP Pulse Ox 110 H 15 154/90 H 96 03/08/18 20:02 03/09/18 02:01 03/09/18 02:01 03/09/18 02:01 - Laboratory Result Diagrams: 03/08/18 20:47 03/09/18 00:55 Laboratory results interpreted by me: 03/08/18 03/08/18 03/08/18 20:47 20:47 20:47 Hgb 9.7 L Hct 30.7 L MCV 61 L MCH 19.3 L MCHC 31.6 L RDW 18.4 H Eosinophils % 7.5 H Basophils % 2.4 H Absolute Eosinophils 0.7 H Glucose 113 H Ur Leukocyte Esterase TRACE H 03/09/18 00:55 Hgb Hct MCV MCH MCHC RDW Eosinophils % Basophils % Absolute Eosinophils Glucose 115 H Ur Leukocyte Esterase - Diagnostic Test Radiology reviewed: Reports reviewed - EKG Interpretation by Me EKG shows normal: Sinus rhythm Rate: Normal Rhythm: NSR [place]/QRS: No: LBBB Heart block present: No: 1st Degree, Mobitz 1, Mobitz 2, CHB (3rd degree block) When compared to previous EKG there are: No significant change Discharge - Discharge Clinical Impression: Chest pain Condition: Good Disposition: HOME, SELF-CARE Instructions: Chest Pain of Unclear Cause ([facility]) Additional Instructions: Please follow-up with your primary physician as soon as you can to discuss having a stress test. Return to the emergency department if you experience recurrent or worsening symptoms. Prescriptions: Albuterol Sulfate [Ventolin 0.083% Neb 2.5 mg/3 mL Ampul] 2.5 mg NEB Q6H PRN 30 Days #120 vial.neb PRN Reason: Print Language: Mongolian
[2018-03-09 01:32] LABS: ALANINE AMINOTRANSFERASE 17 U/L (9-52); ALBUMIN 3.8 g/dL (3.5-5.0); ALKALINE PHOSPHATASE 83 U/L (38-126); ANION GAP 10 (5-19); ASPARTATE AMINO TRANSFERASE 20 U/L (14-36); BILIRUBIN,DIRECT 0.3 mg/dL (0.0-0.4); BILIRUBIN,TOTAL 0.6 mg/dL (0.2-1.3); BLOOD UREA NITROGEN 11 mg/dL (7-20); CALCIUM 8.7 mg/dL (8.4-10.2); CARBON DIOXIDE 28 mmol/L (22-30); CHLORIDE 104 mmol/L (98-107); CREATINE KINASE 74 U/L (30-135); GLUCOSE 115 mg/dL (75-110); POTASSIUM 3.6 mmol/L (3.6-5.0); SODIUM 141.8 mmol/L (137-145); TOTAL PROTEIN 6.7 g/dL (6.3-8.2)
[2018-03-09 01:41] LABS: CREATINE KINASE MB 0.61 ng/mL (<4.55)
[2018-03-09 02:17] VITALS: BP 154/90
[2018-03-09 09:35] LABS: PATH REVIEW PATHOLOGIST REVIEWED
--- NOTE | 2018-03-09 11:20 | EKG REPORT ---
SEVERITY:- ABNORMAL ECG - SINUS RHYTHM ABNORMAL T, CONSIDER ISCHEMIA, LATERAL LEADS : Confirmed by: Semaj Lara 09-Mar-2018 11:19:02
== END 2018-03-09 02:37 | disposition home or self-care (01) ==
LOC: ER 19:52
DX: R07.9 Chest pain, unspecified (principal); I10 Essential (primary) hypertension; J45.909 Unspecified asthma, uncomplicated; R06.02 Shortness of breath; R05 Cough; Z88.0 Allergy status to penicillin; Z91.040 Latex allergy status; Z88.1 Allergy status to other antibiotic agents; Z88.9 Allergy status to unspecified drugs, medicaments and biological substances; Z82.49 Family history of ischemic heart disease and other diseases of the circulatory system; Z86.711 Personal history of pulmonary embolism; Z87.01 Personal history of pneumonia (recurrent); Z85.3 Personal history of malignant neoplasm of breast; Z87.442 Personal history of urinary calculi; M19.90 Unspecified osteoarthritis, unspecified site; F41.9 Anxiety disorder, unspecified
CPT/HCPCS: 36415; 71045; 80053; 80307; 81001; 82550; 82553; 83880; 84484; 85025; 93005; 93010; 99285

== ENCOUNTER 2018-04-25 18:34 | Emergency (ER) | payer MEDICARE ==
[2018-04-25] MEDS ORDERED: PREDNISONE 20 MG TABLET PO ONE (18:59)
--- NOTE | 2018-04-25 19:01 | ER Document Report ---
ED General - General Chief Complaint: Breathing Difficulty Stated Complaint: DIFFICULTY BREATHING Time Seen by Provider: 04/25/18 18:44 Notes: Patient is a 52-year-old female with a past medical history of asthma who presents complaining of 24 hours of progressively worsening shortness of breath worsened by exertion. Has been trying her home albuterol treatments with minimal improvement. Has not seen her primary doctor regarding today's c oncerns. States that she is concerned that her symptoms could progress and result in hospitalization and/or intubation which she has experienced in the past. She states that she has had subjective fever at home but has not recorded temperature. Notes a cough with associated production of clear sputum. Has multiple sick contacts with similar symptoms. States that she feels that she is picked up a viral upper respiratory infection that is triggering an asthma exacerbation. TRAVEL OUTSIDE OF THE [place] IN LAST 30 DAYS: No - Related Data Allergies/Adverse Reactions: ceftriaxone sodium [From Rocephin] Allergy (Severe, Verified 04/25/18 18:49) resp. distress Histamine H2 Inhibitors Allergy (Severe, Verified 04/25/18 18:49) Hives latex [Latex] Allergy (Severe, Verified 04/25/18 18:49) rash Penicillins Allergy (Severe, Verified 04/25/18 18:49) anaphalactic moxifloxacin HCl [From Avelox] Adverse Reaction (Severe, Verified 04/25/18 18:49) Past Medical History - General Information source: Patient - Social History Smoking Status: Never Smoker Chew tobacco use (# tins/day): No Frequency of alcohol use: None Drug Abuse: None Lives with: Spouse/Significant other Family History: CAD, Hypertension, Malignancy Patient has suicidal ideation: No Patient has homicidal ideation: No - Past Medical History Cardiac Medical History: Reports: Hx Hypertension, Hx Pulmonary Embolism Pulmonary Medical History: Reports: Hx Asthma, Hx Pneumonia - 2014, Hx Intubation - x9, Hx Respiratory Failure Renal/ Medical History: Reports: Hx Kidney Stones. Denies: Hx Peritoneal Dialysis Malignancy Medical History: Reports: Hx Breast Cancer Musculoskeletal Medical History: Reports Hx Arthritis - shoulders, hips Psychiatric Medical History: Reports: Hx Anxiety Denies: Hx Depression Past Surgical History: Reports: Hx Abdominal Surgery - hiatal hernia, Hx Fredy an Section, Hx Cholecystectomy, Hx Genitourinary Surgery - Hiatal hernia repair, Hx Lumpectomy. Denies: Hx Appendectomy, Hx Bowel Surgery, Hx Coronary Artery Bypass Graft, Hx Gastric Bypass Surgery, Hx Herniorrhaphy, Hx Hysterectomy, Hx Mastectomy, Hx Pacemaker, Hx Tonsillectomy, Hx Tubal Ligation. Comment Only: Hx Breast Surgery - Benign mass removed R breast - Immunizations Immunizations up to date: Yes Hx Diphtheria, Pertussis, Tetanus Vaccination: Yes Hx Pneumococcal Vaccination: 04/15/11 Review of Systems - Review of Systems Notes: Constitutional: Negative for fever. HENT: Negative for sore throat. Eyes: Negative for visual changes. Cardiovascular: Negative for chest pain. Respiratory: Positive for shortness of breath and cough Gastrointestinal: Negative for abdominal pain, vomiting or diarrhea. Genitourinary: Negative for dysuria. Musculoskeletal: Negative for back pain. Skin: Negative for rash. Neurological: Negative for headaches, weakness or numbness. 10 point ROS negative except as marked above and in HPI. Physical Exam - Vital signs Vitals: Temp Pulse Resp BP Pulse Ox 99.6 F 96 24 H 186/107 H 91 L 04/25/18 18:45 04/25/18 18:45 04/25/18 18:45 04/25/18 18:45 04/25/18 18:45 Interpretation: Hypoxic, Tachypneic Notes: PHYSICAL EXAMINATION: GENERAL: Appears mildly uncomfortable but in no acute distress. No labored breathing. HEAD: Atraumatic, normocephalic. EYES: Pupils equal round and reactive to light, extraocular movements intact, sclera anicteric, conjunctiva are normal. ENT: nares patent, oropharynx clear without exudates. Moderately dry mucous membranes. NECK: Normal range of motion, supple without lymphadenopathy LUNGS: Breath sounds clear to auscultation bilaterally and equal. No wheezes rales or rhonchi. HEART: Regular rate and rhythm without murmurs ABDOMEN: Soft, nontender, normoactive bowel sounds. No guarding, no rebound. No masses appreciated. EXTREMITIES: Normal range of motion, no pitting or edema. No cyanosis. NEUROLOGICAL: No focal neurological deficits. Moves all extremities spontaneously and on command. PSYCH: Normal mood, normal affect. SKIN: Warm, Dry, normal turgor, no rashes or lesions noted. Course - Re-evaluation Re-evalutation: 04/25/18 19:00 Patient presents with a mild exacerbation of their baseline asthma, does have borderline hypoxemia at baseline and does have oxygen available at home. No significant wheezing, tachypnea or retractions at the time of my assessment. 92-93% on room air which patient states that the approximately 1-2% lower than her normal. Patient reports that she has had symptoms consistent with an upper respiratory infection including cough, congestion and fever at home. Chest x- ray without evidence of an acute pneumonia. Rapid flu negative. Based on patient's overall reassuring assessment, I believe they are stable for outpatient management with steroids. Patient did in fact state this is her main reason for coming today as she wanted to stave off any potential worsening and try to prevent hospitalization. I do not suspect an acute alternative pathology at this time based on history and exam including acute pulmonary embolus, ACS, pneumothorax, or aortic dissection. At this time will discharge with return precautions and follow-up recommendations. Verbal discharge instructions given a the bedside and opportunity for questions given. Medication warnings reviewed. Patient is in agreement with this plan and has verbalized understanding of return precautions and the need for primary care follow-up in the next 24-72 hours. - Vital Signs Vital signs: Temp Pulse Resp BP Pulse Ox 99.6 F 96 18 168/99 H 93 04/25/18 18:45 04/25/18 18:45 04/25/18 21:01 04/25/18 21:01 04/25/18 21:01 - Laboratory Result Diagrams: 04/25/18 20:57 04/25/18 19:39 Laboratory results interpreted by me: 04/25/18 04/25/18 19:39 20:57 Hgb 9.8 L Hct 31.8 L MCV 61 L MCH 18.8 L MCHC 30.9 L RDW 19.1 H Seg Neutrophils % 84.1 H Lymphocytes % 9.1 L Sodium 136.5 L Glucose 125 H - Diagnostic Test Radiology reviewed: Image reviewed, Reports reviewed Radiology results interpreted by me: 04/25/18 21:49 Chest x-ray: No acute infiltrate or pneumothorax Discharge - Discharge Clinical Impression: Breathing difficulty Asthma exacerbation Qualifiers: Asthma severity: mild Asthma persistence: persistent Qualified Code(s): J45.31 - Mild persistent asthma with (acute) exacerbation Condition: Good Disposition: HOME, SELF-CARE Additional Instructions: You were seen for an asthma exacerbation. Your symptoms improved with treatment here in the emergency department. However, it is very important that you return to the emergency department immediately if you began to have worsening difficulty breathing that does not respond to your normal home nebulizers. You are also being sent home on a five-day course of steroids that you should start taking tomorrow. Please also follow closely with your primary care physician. you should also return to emergency department if you develop fever greater than 101, persistent cough, persistent vomiting, pass out, or any other symptoms that are concerning to you. Your chest x-ray and flu test were both negative today. Prescriptions: Prednisone [Deltasone 20 mg Tablet] 2 tab PO DAILY 5 Days tablet
--- NOTE | 2018-04-25 19:22 | RADIOLOGY REPORT (SQ) ---
EXAM DESCRIPTION: CHEST SINGLE VIEW COMPLETED DATE/TIME: 04/25/2018 7:07 pm REASON FOR STUDY: sob COMPARISON: 03/08/2018 TECHNIQUE: Single frontal radiographic view of the chest acquired. NUMBER OF VIEWS: One view. LIMITATIONS: None. FINDINGS: LUNGS AND PLEURA: No pneumothorax. No consolidation or pleural effusion. MEDIASTINUM AND HILAR STRUCTURES: Stable. HEART AND VASCULAR STRUCTURES: Stable. BONES: No acute findings. HARDWARE: None in the chest. OTHER: No other significant finding. IMPRESSION: NO ACUTE FINDINGS. TECHNICAL DOCUMENTATION: JOB ID: [id number] [place]-72 2010 [employer]- All Rights Reserved Reading location - IP/workstation name: [email or web address]
[2018-04-25 19:41] LABS: A TYPE INFLUENZA AG NEGATIVE (NEGATIVE); B INFLUENZA AG NEGATIVE (NEGATIVE)
[2018-04-25 20:06] LABS: ANION GAP 10 (5-19); BLOOD UREA NITROGEN 7 mg/dL (7-20); CARBON DIOXIDE 22 mmol/L (22-30); CHLORIDE 105 mmol/L (98-107); GLUCOSE 125 mg/dL (75-110); POTASSIUM 3.8 mmol/L (3.6-5.0); SODIUM 136.5 mmol/L (137-145)
[2018-04-25 21:07] LABS: ABSOLUTE BASOPHILS # (AUTO) 0.1 10^3/uL (0.0-0.2); ABSOLUTE EOSINOPHILS # (AUTO) 0.1 10^3/uL (0.0-0.6); ABSOLUTE LYMPHOCYTES (AUTO) 0.8 10^3/uL (0.5-4.7); ABSOLUTE MONOCYTES (AUTO) 0.3 10^3/uL (0.1-1.4); ABSOLUTE NEUT (AUTO) 7.2 10^3/uL (1.7-8.2); BASOPHILS % (AUTO) 1.1 % (0-2); EOSINOPHILS % (AUTO) 1.7 % (0-6); HEMATOCRIT 31.8 % (36.0-47.0); HEMOGLOBIN 9.8 g/dL (12.0-15.5); LYMPHOCYTES % (AUTO) 9.1 % (13-45); MEAN CORPUSCULAR HEMOGLOBIN 18.8 pg (27.0-33.4); MEAN CORPUSCULAR HGB CONC 30.9 g/dL (32.0-36.0); MEAN CORPUSCULAR VOLUME 61 fl (80-97); PLATELET COUNT 356 10^3/uL (150-450); RED BLOOD COUNT 5.22 10^6/uL (3.72-5.28); RED CELL DISTRIBUTION WIDTH 19.1 % (11.5-14.0); SEGMENTED NEUTROPHILS % (AUTO) 84.1 % (42-78); TOTAL CELLS COUNTED % (AUTO) 100 %; WHITE BLOOD COUNT 8.6 10^3/uL (4.0-10.5)
[2018-04-25] MEDS ORDERED: IPRATROPIUM/ALBUTEROL 0.5-2.5 MG/3 ML AMPUL NEB ONE (21:43)
[2018-04-25 21:44] LABS: ANISOCYTOSIS 2+; POIKILOCYTOSIS 2+; TOXIC GRANULATION SLIGHT; TOXIC VACUOLATION PRESENT
[2018-04-25 21:45] LABS: OVALOCYTES 2+; PLATELET COMMENT ADEQUATE; STOMATOCYTES 2+
[2018-04-25 22:05] VITALS: BP 168/99
--- NOTE | 2018-04-25 23:45 | EKG REPORT ---
SEVERITY:- ABNORMAL ECG - SINUS RHYTHM ABNORMAL T, CONSIDER ISCHEMIA, LATERAL LEADS : Confirmed by: Semaj Lara 25-Apr-2018 23:44:56
== END 2018-04-25 22:23 | disposition home or self-care (01) ==
LOC: ER 18:34
DX: J45.31 Mild persistent asthma with (acute) exacerbation (principal); Z79.899 Other long term (current) drug therapy; R06.02 Shortness of breath; R05 Cough; I10 Essential (primary) hypertension; Z88.1 Allergy status to other antibiotic agents; Z88.8 Allergy status to other drugs, medicaments and biological substances; Z91.040 Latex allergy status; Z88.0 Allergy status to penicillin; Z87.01 Personal history of pneumonia (recurrent)
CPT/HCPCS: 93005; 94640; 99285; 36415; 85025; 80048; 84484; 87804; 71045; 93010; A9270 ×2; J7512; J7620

== ENCOUNTER 2018-05-14 14:39 | Emergency (ER) | payer MEDICARE ==
[2018-05-14] MEDS ORDERED: IPRATROPIUM/ALBUTEROL 0.5-2.5 MG/3 ML AMPUL NEB ONE (15:52)
[2018-05-14] MEDS ORDERED: METHYLPREDNISOLONE INJ 125 MG/2 ML SDV IV ONE (15:53)
--- NOTE | 2018-05-14 15:56 | ER Document Report ---
ED Medical Screen (RME) - General Chief Complaint: Shortness Of Breath Stated Complaint: SHORTNESS OF BREATH Time Seen by Provider: 05/14/18 15:52 Notes: 52-year-old female with history of asthma and 11 previous intubations presents to the emergency department for acute shortness of breath that started today. She has been sick for the past 3 weeks with a heavy cough and then a head cold. She gave herself a nebulized treatment at home prior to coming which did not help. She denies chest pain, diaphoresis, nausea, vomiting. She states she used her personal pulse ox at home prior to coming and it was reading in the 80s. Of note SPO2 is currently 95%. TRAVEL OUTSIDE OF THE [place] IN LAST 30 DAYS: No - Related Data Allergies/Adverse Reactions: ceftriaxone sodium [From Rocephin] Allergy (Severe, Verified 04/25/18 18:49) resp. distress Histamine H2 Inhibitors Allergy (Severe, Verified 04/25/18 18:49) Hives latex [Latex] Allergy (Severe, Verified 04/25/18 18:49) rash Penicillins Allergy (Severe, Verified 04/25/18 18:49) anaphalactic moxifloxacin HCl [From Avelox] Adverse Reaction (Severe, Verified 04/25/18 18:49) Past Medical History - Social History Family history: Hypertension, Malignancy, Other - asthma - Past Medical History Cardiac Medical History: Reports: Hx Hypertension, Hx Pulmonary Embolism Pulmonary Medical History: Reports: Hx Asthma, Hx Pneumonia - 2014, Hx Intubation - x9, Hx Respiratory Failure Renal/ Medical History: Reports: Hx Kidney Stones. Denies: Hx Peritoneal Dialysis Malignancy Medical History: Reports: Hx Breast Cancer Musculoskeltal Medical History: Reports Hx Arthritis - shoulders, hips Psychiatric Medical History: Reports: Hx Anxiety Denies: Hx Depression Past Surgical History: Reports: Hx Abdominal Surgery - hiatal hernia, Hx Section, Hx Cholecystectomy, Hx Genitourinary Surgery - Hiatal hernia repair, Hx Lumpectomy. Denies: Hx Appendectomy, Hx Bowel Surgery, Hx Coronary Artery Bypass Graft, Hx Gastric Bypass Surgery, Hx Herniorrhaphy, Hx Hysterectomy, Hx Mastectomy, Hx Pacemaker, Hx Tonsillectomy, Hx Tubal Ligation. Comment Only: Hx Breast Surgery - Benign mass removed R breast - Immunizations Immunizations up to date: Yes Hx Diphtheria, Pertussis, Tetanus Vaccination: Yes Physical Exam - Vital signs Vitals: Temp Pulse Resp BP Pulse Ox 98.9 F 101 H 24 H 167/86 H 95 05/14/18 15:23 05/14/18 15:23 05/14/18 15:23 05/14/18 15:23 05/14/18 15:23 - Respiratory Respiratory status: Respiratory distress Chest status: Nontender Breath sounds: Decreased air movement, Wheezing Course - Vital Signs Vital signs: Temp Pulse Resp BP Pulse Ox 98.9 F 101 H 24 H 167/86 H 95 05/14/18 15:23 05/14/18 15:23 05/14/18 15:23 05/14/18 15:23 05/14/18 15:23
[2018-05-14 16:51] LABS: ABSOLUTE EOSINOPHILS # (AUTO) 0.5 10^3/uL (0.0-0.6); ABSOLUTE LYMPHOCYTES (AUTO) 1.4 10^3/uL (0.5-4.7); ABSOLUTE MONOCYTES (AUTO) 0.7 10^3/uL (0.1-1.4); ABSOLUTE NEUT (AUTO) 5.3 10^3/uL (1.7-8.2); BASOPHILS % (AUTO) 0.3 % (0-2); EOSINOPHILS % (AUTO) 6.7 % (0-6); HEMATOCRIT 32.3 % (36.0-47.0); LYMPHOCYTES % (AUTO) 17.7 % (13-45); MEAN CORPUSCULAR HEMOGLOBIN 19.6 pg (27.0-33.4); MEAN CORPUSCULAR HGB CONC 31.1 g/dL (32.0-36.0); MEAN CORPUSCULAR VOLUME 63 fl (80-97); MONOCYTES % (AUTO) 8.9 % (3-13); PLATELET COUNT 415 10^3/uL (150-450); RED BLOOD COUNT 5.11 10^6/uL (3.72-5.28); RED CELL DISTRIBUTION WIDTH 20.3 % (11.5-14.0); SEGMENTED NEUTROPHILS % (AUTO) 66.4 % (42-78); TOTAL CELLS COUNTED % (AUTO) 100 %; WHITE BLOOD COUNT 7.9 10^3/uL (4.0-10.5)
[2018-05-14 17:09] LABS: ALANINE AMINOTRANSFERASE 25 U/L (9-52); ALBUMIN 4.5 g/dL (3.5-5.0); ALKALINE PHOSPHATASE 106 U/L (38-126); ANION GAP 13 (5-19); ASPARTATE AMINO TRANSFERASE 27 U/L (14-36); BILIRUBIN,DIRECT 0.3 mg/dL (0.0-0.4); BILIRUBIN,TOTAL 0.7 mg/dL (0.2-1.3); BLOOD UREA NITROGEN 7 mg/dL (7-20); CALCIUM 9.3 mg/dL (8.4-10.2); CARBON DIOXIDE 26 mmol/L (22-30); CHLORIDE 103 mmol/L (98-107); GLUCOSE 102 mg/dL (75-110); POTASSIUM 4.1 mmol/L (3.6-5.0); SODIUM 142.1 mmol/L (137-145)
[2018-05-14 17:23] LABS: ANISOCYTOSIS 2+; POIKILOCYTOSIS SLIGHT; TOXIC GRANULATION SLIGHT
[2018-05-14 17:24] LABS: HYPOCHROMASIA 2+; PLATELET COMMENT ADEQUATE
[2018-05-14 17:25] LABS: OVALOCYTES SLIGHT
[2018-05-14 17:48] LABS: VENOUS BLOOD BASE EXCESS 0.3 mmol/L; VENOUS BLOOD HCO3 25.7 mmol/L (20-32); VENOUS BLOOD PCO2 44.8 mmHg (35-63); VENOUS BLOOD PH 7.38 (7.30-7.42)
[2018-05-14] MEDS ORDERED: ALBUTEROL SULFATE 0.083% NEB 2.5 MG/3 ML AMPUL NEB ONE (20:29)
--- NOTE | 2018-05-14 20:32 | ER Document Report ---
ED General - General Chief Complaint: Shortness Of Breath Stated Complaint: SHORTNESS OF BREATH Time Seen by Provider: 05/14/18 15:52 Mode of Arrival: Ambulatory Information source: Patient, Relative, [facility] Records Notes: 52-year-old female with history of asthma and 11 previous intubations presents to the emergency department for acute shortness of breath that started today. She has been sick for the past 3 weeks with a heavy cough and then a head cold. She gave herself a nebulized treatment at home prior to coming which did not help. She denies chest pain, diaphoresis, nausea, vomiting. She states she used her personal pulse ox at home prior to coming and it was reading in the 80s. TRAVEL OUTSIDE OF THE [place] IN LAST 30 DAYS: No - HPI Onset: This morning Onset/Duration: Gradual, Persistent Quality of pain: No pain Associated symptoms: Body/muscle aches, Chills, Productive cough, Fever, Sinus pain/drainage, Shortness of breath. denies: Earache, Leg swelling, Nausea, Vomiting, Rhinnorhea, Sore throat Exacerbated by: Coughing Relieved by: Denies Similar symptoms previously: Yes Recently seen / treated by doctor: Yes - Related Data Allergies/Adverse Reactions: ceftriaxone sodium [From Rocephin] Allergy (Severe, Verified 04/25/18 18:49) resp. distress Histamine H2 Inhibitors Allergy (Severe, Verified 04/25/18 18:49) Hives latex [Latex] Allergy (Severe, Verified 04/25/18 18:49) rash Penicillins Allergy (Severe, Verified 04/25/18 18:49) anaphalactic moxifloxacin HCl [From Avelox] Adverse Reaction (Severe, Verified 04/25/18 18:49) Past Medical History - General Information source: Patient, Relative, [facility] Records - Social History Smoking Status: Never Smoker Chew tobacco use (# tins/day): No Frequency of alcohol use: None Drug Abuse: None Lives with: Spouse/Significant other Family History: CAD, Hypertension, Malignancy Patient has suicidal ideation: No Patient has homicidal ideation: No - Past Medical History Cardiac Medical History: Reports: Hx Hypertension, Hx Pulmonary Embolism Pulmonary Medical History: Reports: Hx Asthma, Hx Pneumonia - 2014, Hx Intubation - x9, Hx Respiratory Failure Renal/ Medical History: Reports: Hx Kidney Stones. Denies: Hx Peritoneal Dialysis Malignancy Medical History: Reports: Hx Breast Cancer Musculoskeletal Medical History: Reports Hx Arthritis - shoulders, hips Psychiatric Medical History: Reports: Hx Anxiety Denies: Hx Depression Past Surgical History: Reports: Hx Abdominal Surgery - hiatal hernia, Hx Section, Hx Cholecystectomy, Hx Genitourinary Surgery - Hiatal hernia repair, Hx Lumpectomy. Denies: Hx Appendectomy, Hx Bowel Surgery, Hx Coronary Artery Bypass Graft, Hx Gastric Bypass Surgery, Hx Herniorrhaphy, Hx Hysterectomy, Hx Mastectomy, Hx Pacemaker, Hx Tonsillectomy, Hx Tubal Ligation. Comment Only: Hx Breast Surgery - Benign mass removed R breast - Immunizations Immunizations up to date: Yes Hx Diphtheria, Pertussis, Tetanus Vaccination: Yes Hx Pneumococcal Vaccination: 04/15/11 Review of Systems - Review of Systems Constitutional: Fever, Malaise, Weight loss, Recent illness EENT: Nose congestion. denies: Blurred vision, Throat pain Cardiovascular: Dyspnea. denies: Chest pain, Palpitations, Dizziness Respiratory: Cough, Short of breath, Wheezing Gastrointestinal: denies: Abdominal pain, Diarrhea, Nausea, Vomiting Genitourinary: denies: Dysuria, Flank pain Female Genitourinary: No symptoms reported Musculoskeletal: denies: Back pain Skin: denies: Rash Hematologic/Lymphatic: No symptoms reported Neurological/Psychological: denies: Headaches -: Yes All other systems reviewed and negative Physical Exam - Vital signs Vitals: Temp Pulse Resp BP Pulse Ox 98.9 F 101 H 24 H 167/86 H 95 05/14/18 15:23 05/14/18 15:23 05/14/18 15:23 05/14/18 15:23 05/14/18 15:23 - Notes Notes: PHYSICAL EXAMINATION: GENERAL: Well-appearing, well-nourished and in no acute distress. HEAD: Atraumatic, normocephalic. EYES: Pupils equal round and reactive to light, extraocular movements intact, conjunctiva are normal. ENT: Nares patent, oropharynx clear without exudates. Moist mucous membranes. NECK: Normal range of motion, supple without lymphadenopathy LUNGS: Diffuse expiratory wheezing in all lung [place]. No accessory muscle use, tachypnea. On nasal cannula due to hypoxia. HEART: Regular rate and rhythm without murmurs ABDOMEN: Soft, nontender, nondistended abdomen. No guarding, no rebound. No masses appreciated. Female : deferred Musculoskeletal: Normal range of motion, no pitting or edema. No cyanosis. NEUROLOGICAL: Cranial nerves grossly intact. Normal speech, normal gait. Normal sensory, motor exams PSYCH: Normal mood, normal affect. SKIN: Warm, Dry, normal turgor, no rashes or lesions noted. Course - Re-evaluation Re-evalutation: Temp Pulse Resp BP Pulse Ox 98.9 F 101 H 24 H 167/86 H 95 05/14/18 15:23 05/14/18 15:23 05/14/18 15:23 05/14/18 15:23 05/14/18 15:23 Chest/Abdomen CTA 05/14/18 20:25 IMPRESSION: No evidence of pulmonary embolus or aortic dissection Areas of atelectasis in the lower lobes and lingula 1.1 cm nodular focus in the right lower lobe which correlates with a cystic area seen on the previous exam. Suspect that this represents fluid or mucus impaction in an area of cystic bronchiectasis. Follow-up in three months to document stability Hepatosplenomegaly Laboratory 05/14/18 05/14/18 05/14/18 16:30 16:30 17:30 WBC 7.9 RBC 5.11 Hgb 10.0 L Hct 32.3 L MCV 63 L MCH 19.6 L MCHC 31.1 L RDW 20.3 H Plt Count 415 Seg Neutrophils % 66.4 Lymphocytes % 17.7 Monocytes % 8.9 Eosinophils % 6.7 H Basophils % 0.3 Absolute Neutrophils 5.3 Absolute Lymphocytes 1.4 Absolute Monocytes 0.7 Absolute Eosinophils 0.5 Absolute Basophils 0.0 Toxic Granulation SLIGHT Platelet Comment ADEQUATE Hypochromasia 2+ Poikilocytosis SLIGHT Anisocytosis 2+ Microcytosis 3+ Ovalocytes SLIGHT VBG pH 7.38 VBG pCO2 44.8 VBG HCO3 25.7 VBG Base Excess 0.3 Sodium 142.1 Potassium 4.1 Chloride 103 Carbon Dioxide 26 Anion Gap 13 BUN 7 Creatinine 0.79 Est GFR ( Amer) > 60 Est GFR (Non-Af Amer) > 60 Glucose 102 Calcium 9.3 Total Bilirubin 0.7 Direct Bilirubin 0.3 Neonat Total Bilirubin Not Reportable Neonat Direct Bilirubin Not Reportable Neonat Indirect Bili Not Reportable AST 27 ALT 25 Alkaline Phosphatase 106 Total Protein 8.0 Albumin 4.5 Chest/Abdomen CTA 05/14/18 20:25 IMPRESSION: No evidence of pulmonary embolus or aortic dissection Areas of atelectasis in the lower lobes and lingula 1.1 cm nodular focus in the right lower lobe which correlates with a cystic area seen on the previous exam. Suspect that this represents fluid or mucus impaction in an area of cystic bronchiectasis. Follow-up in three months to document stability Hepatosplenomegaly 05/14/18 20:31 52-year-old female with a history of asthma, hypertension presents with complaint of shortness of breath that worsened this morning. Patient does have a previous history of 11 prior intubations secondary to her asthma. Patient reports 3 weeks of upper respiratory infection, decreased appetite and 10 pound weight loss. 05/14/18 21:42 Patient reevaluated and she appears more alert, awake and reports feeling better. 05/14/18 22:25 CTA of the chest was obtained and negative for PE, aortic dissection, pneumonia. It does show atelectasis in the lower lung [place]. Patient still remains mildly hypoxic but is insistent on being discharged home. She does have home oxygen and agrees to wear it continuously for the next 3-4 days or until her hypoxia resolved. Because of the length of symptoms patient will be started on doxycycline. Refills for albuterol were given. Incidental findings on CAT scan were discussed with the patient and she was provided a copy of her CTA report. Patient was evaluated and treated as appropriate for the patient's presenting symptoms and complaint, with consideration of any critical or life threatening conditions that may be associated with their obtained history and exam as noted above. All results were discussed with patient and her who is at the bedside. Patient provided the opportunity to ask questions, and express concerns. Patient was educated on treatments based on their presumed diagnosis as noted above. At this time we will discharge the patient with return precautions and follow-up recommendations. Verbal discharge instructions given a the bedside. Medication warnings reviewed. Patient is in agreement with this plan and has verbalized understanding of return precautions. After careful consideration I feel that that patient can be safely discharged from the emergency department, they were advised to followup with a primary care physician in 2-3 days. Dictation on this chart was performed using voice recognition software and may result in unintended grammatical, spelling, syntax or errors. 05/14/18 23:18 - Vital Signs Vital signs: Temp Pulse Resp BP Pulse Ox 98.9 F 89 20 185/111 H 91 L 05/14/18 15:23 05/14/18 20:35 05/14/18 20:35 05/14/18 20:19 05/14/18 20:19 - Laboratory Result Diagrams: 05/14/18 16:30 05/14/18 16:30 Laboratory results interpreted by me: 05/14/18 16:30 Hgb 10.0 L Hct 32.3 L MCV 63 L MCH 19.6 L MCHC 31.1 L RDW 20.3 H Eosinophils % 6.7 H - Diagnostic Test Radiology reviewed: Image reviewed - EKG Interpretation by Me EKG shows normal: Sinus rhythm Rate: Normal When compared to previous EKG there are: No significant change Discharge - Discharge Clinical Impression: Accelerated essential hypertension, Bronchitis Asthma exacerbation Qualifiers: Asthma severity: moderate Asthma persistence: unspecified Qualified Code(s): J45.901 - Unspecified asthma with (acute) exacerbation Hypertension Qualifiers: Hypertension type: unspecified Qualified Code(s): I10 - Essential (primary) hypertension URI (upper respiratory infection) Qualifiers: URI type: unspecified URI Qualified Code(s): J06.9 - Acute upper respiratory infection, unspecified Condition: Good Disposition: HOME, SELF-CARE Instructions: Asthma ([facility]), Bronchitis With Bronchospasm (Wheezing) ([facility]), Upper Respiratory Illness ([facility]) Additional Instructions: Follow up with your [id number] hours for further care or return to the ED IMMEDIATELY if symptoms worsen or you have any concerns. If you cannot afford to follow up with your primary care physician a list of low cost clinics have been provided at the end of your discharge papers as well. Most prescribed medications have multiple side effects. The safest thing to do is when filling your prescription speak to your pharmacist regarding possible interactions with your normal home medications and over the counter medications such as Ibuprofen, Tylenol, Benadryl. If you experience any symptoms that cause you discomfort or concern you should discontinue the medication immediately and return to the emergency room or call your primary care physician. Prescriptions: Albuterol Sulfate [Ventolin 0.083% Neb 2.5 mg/3 mL Ampul] 1 vial NEB Q4 #20 vial Doxycycline Hyclate 100 mg PO BID #14 capsule Prednisone [Deltasone 20 mg Tablet] 40 mg PO DAILY #10 tablet Forms: Elevated Blood Pressure
[2018-05-14] MEDS ORDERED: RACEPINEPHRINE HCL 2.25% NEB 0.5 ML AMPUL NEB ONE (21:29)
[2018-05-14] MEDS ORDERED: NORMAL SALINE 500 ML IV ONE (21:29)
--- NOTE | 2018-05-14 22:00 | RADIOLOGY REPORT (SQ) ---
EXAM DESCRIPTION: CT CHEST ANGIOGRAPHY WITHOUT THEN WITH IV CONTRAST COMPLETED DATE/TME: 05/14/2018 20:25 CLINICAL HISTORY: 52 years Female sob hypoxic COMPARISON: None. TECHNIQUE: Contiguous axial images were obtained through the chest during the infusion of IV contrast. Reformatted images obtained. MIP reformatted images obtained. This exam was performed according to our department optimization program which includes automated exposure control, adjustment of the mA and/or kv according to patient size and/or use of iterative reconstruction technique. FINDINGS: There is no evidence of aortic dissection or pulmonary embolus. No pericardial or pleural effusion. Liver and spleen are enlarged. Small hiatal hernia. Mild bronchial wall thickening. Atelectasis in the lingula and areas of atelectasis in the lower lobes bilaterally. There is a nodular focus in the right lower lobe measuring 1.1 cm. When correlating with the old study there is a cystic area. Suspect that this represents an area of cystic bronchiectasis with fluid or mucus impaction. Recommend follow-up CT in three months. IMPRESSION: No evidence of pulmonary embolus or aortic dissection Areas of atelectasis in the lower lobes and lingula 1.1 cm nodular focus in the right lower lobe which correlates with a cystic area seen on the previous exam. Suspect that this represents fluid or mucus impaction in an area of cystic bronchiectasis. Follow-up in three months to document stability Hepatosplenomegaly
[2018-05-14] MEDS ORDERED: DOXYCYCLINE HYCLATE 100 MG TABLET PO ONE (22:09)
[2018-05-15 00:52] VITALS: BP 170/103
--- NOTE | 2018-05-15 20:03 | EKG REPORT ---
SEVERITY:- ABNORMAL ECG - SINUS RHYTHM NONSPECIFIC T ABNORMALITIES, LATERAL LEADS BORDERLINE PROLONGED QT INTERVAL : Confirmed by: Semaj Lara 15-May-2018 20:03:30
== END 2018-05-15 00:58 | disposition home or self-care (01) ==
LOC: ER 14:39
DX: J45.901 Unspecified asthma with (acute) exacerbation (principal); J06.9 Acute upper respiratory infection, unspecified; J98.11 Atelectasis; R09.02 Hypoxemia; R06.02 Shortness of breath; I10 Essential (primary) hypertension; M79.10 Myalgia, unspecified site; R50.9 Fever, unspecified; R53.81 Other malaise; R63.4 Abnormal weight loss; J34.89 Other specified disorders of nose and nasal sinuses; R09.81 Nasal congestion; R63.0 Anorexia; Z88.1 Allergy status to other antibiotic agents; Z88.8 Allergy status to other drugs, medicaments and biological substances; Z91.040 Latex allergy status; Z88.0 Allergy status to penicillin; Z86.711 Personal history of pulmonary embolism
CPT/HCPCS: 93005; 94640 ×2; 99285; 96361; 96374; 36415; 85025; 80053; 82803; 71275; 93010; A9270 ×3; J2930; J7040; J3490; J7620

== ENCOUNTER → 2018-08-24 | Outpatient (CLI) | payer MEDICARE ==
--- NOTE | 2018-08-24 15:15 | RADIOLOGY REPORT (SQ) ---
EXAM DESCRIPTION: CT CHEST WITHOUT COMPLETED DATE/TIME: 08/24/2018 2:54 pm REASON FOR STUDY: R91.1 SOLITARY PULMONARY NODULE R91.1 SOLITARY PULMONARY NODULE COMPARISON: 05/14/2018 TECHNIQUE: CT scan performed of the chest without intravenous contrast. Images reviewed with lung, soft tissue and bone windows. Reconstructed coronal and sagittal MPR images reviewed. All images st ored on PACS. All CT scanners at this facility use dose modulation, iterative reconstruction, and/or weight based d osing when appropriate to reduce radiation dose to as low as reasonably achievable (ALARA). [facility]: Dose Right [facility]: CareDose [facility]: Dose Right [facility]: Teradose 4D [facility]: Smart Kloudless RADIATION DOSE: CT Rad equipment meets quality standard of care and radiation dose reduction techniq ues were employed. CTDIvol: 17.0 mGy. DLP: 628 mGy-cm. mGy. LIMITATIONS: No technical limitations. FINDINGS: LUNGS AND PLEURA: There is linear scarring or atelectasis in the lingula and right lower l obe. No suspicious pulmonary nodules. No consolidation. HILAR AND MEDIASTINAL STRUCTURES: No identified masses or abnormal nodes. No obvious aneurysm. HEART AND VASCULAR STRUCTURES: No aneurysm. No pericardial effusion. UPPER ABDOMEN: No significant findings. Limited exam. THYROID AND OTHER SOFT TISSUES: No masses. No adenopathy. BONES: No significant finding. HARDWARE: None in the chest. OTHER: No other significant findings. IMPRESSION: Lingular and right basilar atelectasis with scarring. No other significant findings. TECHNICAL DOCUMENTATION: JOB ID: [id number] Quality ID # [id number]: Final reports with documentation of one or more dose reduction techniques (e.g., Au tomated exposure control, adjustment of the mA and/or kV according to patient size, use of iterative reconstruction technique) 2010 [employer]- All Rights Reserved Reading location - IP/workstation name: [email or web address]
== END ==
LOC: RAD 14:41
PROVIDERS: ATTEND Internal Medicine Critical Care Medicine
DX: R91.1 Solitary pulmonary nodule (principal); R91.8 Other nonspecific abnormal finding of lung field
CPT/HCPCS: 71250

== ENCOUNTER 2018-11-15 04:05 | Emergency (ER) | payer MEDICARE ==
[2018-11-15] MEDS ORDERED: LORAZEPAM INJ 2 MG/1 ML VIAL IV ONE (04:47)
[2018-11-15] MEDS ORDERED: GLUCAGON,HUMAN RECOMB 1 MG INJ SUBCUT ONE (04:48)
[2018-11-15] MEDS ORDERED: GLUCAGON,HUMAN RECOMB 1 MG INJ IV ONE (04:53)
[2018-11-15] MEDS ORDERED: NITROGLYCERIN 2% OINTMENT 1 GM PACKET TP ONE (04:54)
--- NOTE | 2018-11-15 05:43 | RADIOLOGY REPORT (SQ) ---
EXAM DESCRIPTION: XR NECK SOFT TISSUE COMPLETED DATE/TME: 11/15/2018 04:47 CLINICAL HISTORY: 52 years, Female, possible FB COMPARISON: None. NUMBER OF VIEWS: 2 TECHNIQUE: 2 view neck using soft tissue technique LIMITATIONS: None. FINDINGS: The epiglottis and aryepiglottic folds are normal. The prevertebral soft tissues are normal. The airway is widely patent. There is no radiopaque foreign body IMPRESSION: Negative exam copyright 2010 [employer]- All Rights Reserved
[2018-11-15] MEDS ORDERED: LIDOCAINE 0.5%/EPINEPHRINE INJ 50 ML VIAL INJ ONE (06:59)
--- NOTE | 2018-11-15 07:06 | ER Document Report ---
ED Foreign Body - General TRAVEL OUTSIDE OF THE [place] IN LAST 30 DAYS: No - General Chief Complaint: Swallowed Foreign Body Stated Complaint: FOREIGN OBJECT IN THROAT Time Seen by Provider: 11/15/18 04:40 Primary Care Provider: RAGHU ORELLANA MD [Primary Care Provider] - Follow up as needed CAROL FOLEY MD [ACTIVE STAFF] - Follow up as needed Notes: Patient is a 52-year-old female presents to the emergency department with a possible food bolus stuck in her esophagus. Patient states she was eating pizza crust tonight when she "did not chew it well enough." Patient states initially she thought she can get it out and try to eat other foods. States she has been spitting her saliva and secretions since. States she has tried to drink water and is unable to pass water. Patient states she has a history of anxiety and asthma. States she has been intubated multiple times in the past for asthma exacerbations. States she feels very anxious right now. (DOUGLAS GONZALES) - Related Data Allergies/Adverse Reactions: ceftriaxone sodium [From Rocephin] Allergy (Severe, Verified 04/25/18 18:49) resp. distress Histamine H2 Inhibitors Allergy (Severe, Verified 04/25/18 18:49) Hives latex [Latex] Allergy (Severe, Verified 04/25/18 18:49) rash Penicillins Allergy (Severe, Verified 04/25/18 18:49) anaphalactic moxifloxacin HCl [From Avelox] Adverse Reaction (Severe, Verified 04/25/18 18:49) Past Medical History - General Information source: Patient - Social History Smoking Status: Unknown if Ever Smoked Family History: CAD, Hypertension, Malignancy Patient has suicidal ideation: No Patient has homicidal ideation: No - Past Medical History Cardiac Medical History: Reports: Hx Hypertension, Hx Pulmonary Embolism Pulmonary Medical History: Reports: Hx Asthma, Hx Pneumonia - 2014, Hx Intubation - x9, Hx Respiratory Failure Renal/ Medical History: Reports: Hx Kidney Stones. Denies: Hx Peritoneal Dialysis Malignancy Medical History: Reports: Hx Breast Cancer Musculoskeletal Medical History: Reports Hx Arthritis - shoulders, hips Psychiatric Medical History: Reports: Hx Anxiety Denies: Hx Depression Past Surgical History: Reports: Hx Abdominal Surgery - hiatal hernia, Hx Section, Hx Cholecystectomy, Hx Genitourinary Surgery - Hiatal hernia repair, Hx Lumpectomy. Denies: Hx Appendectomy, Hx Bowel Surgery, Hx Coronary Artery Bypass Graft, Hx Gastric Bypass Surgery, Hx Herniorrhaphy, Hx Hysterectomy, Hx Mastectomy, Hx Pacemaker, Hx Tonsillectomy, Hx Tubal Ligation. Comment Only: Hx Breast Surgery - Benign mass removed R breast - Immunizations Immunizations up to date: Yes Hx Diphtheria, Pertussis, Tetanus Vaccination: Yes Hx Pneumococcal Vaccination: 04/15/11 Review of Systems - Review of Systems Constitutional: No symptoms reported EENT: See HPI Cardiovascular: No symptoms reported Respiratory: No symptoms reported Gastrointestinal: No symptoms reported Genitourinary: No symptoms reported Female Genitourinary: No symptoms reported Musculoskeletal: No symptoms reported Skin: No symptoms reported Hematologic/Lymphatic: No symptoms reported Neurological/Psychological: No symptoms reported Physical Exam - Vital signs Vitals: Temp Pulse Resp BP Pulse Ox 98.6 F 103 H 21 H 216/100 H 98 11/15/18 04:14 11/15/18 04:14 11/15/18 04:14 11/15/18 04:14 11/15/18 04:14 - Notes Notes: GENERAL: Alert, interacts well. Patient spitting her secretions. HEAD: Normocephalic, atraumatic. EYES: Pupils equal, round, and reactive to light. Extraocular movements intact. ENT: Oral mucosa moist, tongue midline. Pharynx within normal limits no obvious foreign bodies visualized. NECK: Full range of motion. Supple. Trachea midline. LUNGS: Clear to auscultation bilaterally, no wheezes, rales, or rhonchi. No respiratory distress. HEART: Regular rate and rhythm. No murmur ABDOMEN: Soft, non-tender. Non-distended. Bowel sounds present in all 4 quadrants. EXTREMITIES: Moves all 4 extremities spontaneously. No edema, normal radial and dorsalis pedis pulses bilaterally. No cyanosis. BACK: no cervical, thoracic, lumbar midline tenderness. No saddle anesthesia, normal distal neurovascular exam. NEUROLOGICAL: Alert and oriented x3. Normal speech. cranial nerves II through XII grossly intact. PSYCH: Normal affect, normal mood. SKIN: Warm, dry, normal turgor. No rashes or lesions noted. (DOUGLAS GONZALES) Course - Re-evaluation Re-evalutation: 11/15/18 07:18 Discussed this case with surgery, Dr. Foley who will come to the emergency department to evaluate the patient. 11/15/18 07:[address] Foley states he will scope the patient in trauma 1 to attempt to remove the food foreign body bolus. Pt. care and report transferred to Tram Cleveland NP at shift change for continued care. (DOUGLAS GONZALES) 11/15/18 08:00 care assumed from Perla GANT. Pt awaiting surgeon. 11/15/18 08:51 Dr Foley completed in room procedure for removal of esophageal foreign body. States that a biopsy was taken as well and he did notice some gastritis. 11/15/18 09:20 Patient resting comfortably, reports drowsiness. Vital signs stable. 11/15/18 09:50 Vital signs stable. Patient stable for discharge at this time (WILTON FLEMING) - Vital Signs Vital signs: Temp Pulse Resp BP Pulse Ox 98.6 F 89 14 158/83 H 91 L 11/15/18 04:14 11/15/18 09:00 11/15/18 09:04 11/15/18 09:04 11/15/18 09:04 Discharge - Discharge Clinical Impression: Esophageal foreign body Qualifiers: Encounter type: initial encounter Qualified Code(s): T18.108A - Unspecified foreign body in esophagus causing other injury, initial encounter Gastritis Qualifiers: Gastritis type: unspecified gastritis Chronicity: unspecified Gastritis bleeding: without bleeding Qualified Code(s): K29.70 - Gastritis, unspecified, without bleeding Condition: Stable Disposition: HOME, SELF-CARE Instructions: Esophageal Foreign Object Removal ([facility]), Gastritis ([facility]) Additional Instructions: Return immediately for any new or worsening symptoms Followup with your primary care provider, call tomorrow to make a followup appointment Follow-up with general surgeon for a recheck, a biopsy was performed today per Dr Foley Referrals: RAGHU ORELLANA MD [Primary Care Provider] - Follow up as needed CAROL FOLEY MD [ACTIVE STAFF] - Follow up as needed
[2018-11-15] MEDS ORDERED: ONDANSETRON HCL INJ/PF 4 MG/2 ML SDV ONE (07:48)
[2018-11-15] MEDS ORDERED: FENTANYL CITRATE INJ/PF 100 MCG/2 ML AMPUL ONE (07:48)
[2018-11-15] MEDS ORDERED: DIPHENHYDRAMINE HCL 50 MG/ML VIAL ONE (07:48)
[2018-11-15] MEDS ORDERED: EPINEPHRINE INJ 1 MG/10 ML DISP.SYRIN ONE (07:49)
[2018-11-15] MEDS ORDERED: GLUCAGON,HUMAN RECOMB 1 MG INJ ONE (07:49)
[2018-11-15] MEDS ORDERED: NALOXONE HCL INJ/PF 0.4 MG/1 ML SDV ONE (07:49)
[2018-11-15] MEDS ORDERED: FLUMAZENIL INJ 0.5 MG/5 ML VIAL ONE (07:49)
[2018-11-15] MEDS ORDERED: MIDAZOLAM 2 MG/2 ML INJ ONE (07:49)
[2018-11-15] MEDS ORDERED: FENTANYL CITRATE INJ/PF 50 MCG/1 ML 50 ML SDV IV ONE ×2 (08:32→08:36)
[2018-11-15] MEDS ORDERED: MIDAZOLAM 2 MG/2 ML INJ IV ONE ×3 (08:32→08:38)
--- NOTE | 2018-11-15 09:53 | Operative Report ---
Operative Report DATE OF SURGERY: 11/15/18 PREOPERATIVE DIAGNOSIS: Retained foreign body. Chronic airway disease POSTOPERATIVE DIAGNOSIS: 1. Food bolus migrated into the stomach. 2. Mild gastritis OPERATION: 1. Esophagogastroduodenoscopy. 2. Gastric antrum mucosal biopsy SURGEON: CAROL CALLES ANESTHESIA: Moderate Sedation - Sedation TISSUE REMOVED OR ALTERED: Mucosal biopsy COMPLICATIONS: None ESTIMATED BLOOD LOSS: Scant INTRAOPERATIVE FINDINGS: See below PROCEDURE: The patient was moved from ER bed 4 to the trauma bay where appropriate monitoring devices were attached. Consent was provided, and appropriate level of conscious sedation induced. The patient was placed in semirecumbent position oral mouthpiece inserted. Surgical plan and surgical timeout were conducted. The flexible adult upper endoscope was advanced to the patient's oropharynx, down the esophagus through the stomach into the duodenum. The patient tolerated this procedure well. The findings were significant for food fragments in the stomach consistent with pizza crust. There was no evidence of retained foreign body in the esophagus. Also of note there was no evidence of esophageal stricture at the GE junction. There was a small hiatal hernia. The stomach demonstrated mild antral gastritis and a cold forceps biopsy was obtained and sent for histologic analysis. The pylorus was unremarkable. The first and second portion of the duodenum were also unremarkable. There was no evidence of tumor stricture polyp bleeding or ulceration. The scope was brought back through the pylorus into the stomach. The scope was retroflexed looking at the GE junction from the gastric side. No significant pathology identified. The Z line was at approximately 38 cm from the incisor. We reinspected the esophagus carefully and again no evidence of stricture bleeding. The remainder of the esophagus and oropharynx were unremarkable. The scope was withdrawn for the patient. She tolerated the procedure well Impression: Foreign body migrated into the stomach; no evidence of esophageal stricture Recommendations: 1. Educated patient on importance of thorough chewing 2. Await results of gastric mucosal biopsy; emergency department will follow up with patient. 3. Return to hospital if any further difficulties arise.
[2018-11-15 10:25] VITALS: BP 158/90
== END 2018-11-15 10:15 | disposition home or self-care (01) ==
LOC: ER 04:05
DX: T18.128A Food in esophagus causing other injury, initial encounter (principal); K29.70 Gastritis, unspecified, without bleeding; X58.XXXA Exposure to other specified factors, initial encounter; I10 Essential (primary) hypertension; Z91.040 Latex allergy status; Z88.0 Allergy status to penicillin; Z86.711 Personal history of pulmonary embolism; Z87.442 Personal history of urinary calculi; Z85.3 Personal history of malignant neoplasm of breast; Z90.49 Acquired absence of other specified parts of digestive tract
CPT/HCPCS: 88305 ×2; 70360; 43247; J2250; A9270; J3010 ×2; J1610; J2060; 43239; 88313; 88342; 96374; 99284; J0171; J1200; J2310; J2405; J3490

== ENCOUNTER 2019-05-15 10:19 | Emergency (ER) | payer MEDICARE ==
--- NOTE | 2019-05-15 10:49 | ER Document Report ---
ED Medical Screen (RME) - General Chief Complaint: Flu Symptoms Stated Complaint: NAUSEA/VOMITING/BODYACHES Time Seen by Provider: 05/15/19 10:41 Primary Care Provider: RAGHU ORELLANA MD [Primary Care Provider] - Follow up as needed Mode of Arrival: Wheelchair Notes: Patient presents complaining of generalized body aches for the past week. Patient complains of rib pain with cough and nausea. Patient states she has vomited and been unable to keep her blood pressure medications down. Patient has not vomited any today thus far. Patient denies any urinary symptoms. Patient states that she has had cough for the past 3 days. Patient reports feeling off balance and having memory issues. I have greeted and performed a rapid initial assessment of this patient. A comprehensive ED assessment and evaluation of the patient, analysis of test results and completion of the medical decision making process will be conducted by additional ED providers. TRAVEL OUTSIDE OF THE [place] IN LAST 30 DAYS: No - Related Data Allergies/Adverse Reactions: ceftriaxone sodium [From Rocephin] Allergy (Severe, Verified 04/25/18 18:49) resp. distress Histamine H2 Inhibitors Allergy (Severe, Verified 04/25/18 18:49) Hives latex [Latex] Allergy (Severe, Verified 04/25/18 18:49) rash Penicillins Allergy (Severe, Verified 04/25/18 18:49) anaphalactic moxifloxacin HCl [From Avelox] Adverse Reaction (Severe, Verified 04/25/18 18:49) Home Medications: Lisinipril, HCTZ Past Medical History - Social History Family history: Hypertension, Malignancy, Other - asthma - Past Medical History Cardiac Medical History: Reports: Hx Hypertension, Hx Pulmonary Embolism Pulmonary Medical History: Reports: Hx Asthma, Hx Pneumonia - 2014, Hx Intubation - x9, Hx Respiratory Failure Neurological Medical History: Denies: Hx Seizures Renal/ Medical History: Reports: Hx Kidney Stones. Denies: Hx Peritoneal Dialysis Malignancy Medical History: Reports: Hx Breast Cancer Musculoskeltal Medical History: Reports Hx Arthritis - shoulders, hips Psychiatric Medical History: Reports: Hx Anxiety Denies: Hx Depression Past Surgical History: Reports: Hx Abdominal Surgery - hiatal hernia, Hx Section, Hx Cholecystectomy, Hx Genitourinary Surgery - Hiatal hernia repair, Hx Lumpectomy. Denies: Hx Appendectomy, Hx Bowel Surgery, Hx Coronary Artery Bypass Graft, Hx Gastric Bypass Surgery, Hx Herniorrhaphy, Hx Hysterectomy, Hx Mastectomy, Hx Pacemaker, Hx Tonsillectomy, Hx Tubal Ligation. Comment Only: Hx Breast Surgery - Benign mass removed R breast - Immunizations Immunizations up to date: Yes Hx Diphtheria, Pertussis, Tetanus Vaccination: Yes Physical Exam - Vital signs Vitals: Temp Pulse Resp BP Pulse Ox 99.5 F 102 H 24 H 179/96 H 96 05/15/19 10:39 05/15/19 10:39 05/15/19 10:39 05/15/19 10:39 05/15/19 10:39 - Respiratory Respiratory status: No respiratory distress Breath sounds: Nonproductive cough, Rhonchi Course - Vital Signs Vital signs: Temp Pulse Resp BP Pulse Ox 99.5 F 102 H 24 H 179/96 H 96 05/15/19 10:39 05/15/19 10:39 05/15/19 10:39 05/15/19 10:39 05/15/19 10:39 Doctor's Discharge - Discharge Referrals: RAGHU ORELLANA MD [Primary Care Provider] - Follow up as needed
[2019-05-15] MEDS ORDERED: NORMAL SALINE 1000 ML 1,000 ML IV ONE (11:10)
[2019-05-15] MEDS ORDERED: ONDANSETRON HCL INJ/PF 4 MG/2 ML SDV IV ONE (11:10)
[2019-05-15 11:38] LABS: ABSOLUTE BASOPHILS # (AUTO) 0.1 10^3/uL (0.0-0.2); ABSOLUTE LYMPHOCYTES (AUTO) 0.9 10^3/uL (0.5-4.7); ABSOLUTE MONOCYTES (AUTO) 0.7 10^3/uL (0.1-1.4); BASOPHILS % (AUTO) 1.5 % (0-2); EOSINOPHILS % (AUTO) 1.1 % (0-6); HEMATOCRIT 32.3 % (36.0-47.0); HEMOGLOBIN 9.9 g/dL (12.0-15.5); LYMPHOCYTES % (AUTO) 23.5 % (13-45); MEAN CORPUSCULAR HEMOGLOBIN 18.8 pg (27.0-33.4); MEAN CORPUSCULAR HGB CONC 30.7 g/dL (32.0-36.0); MEAN CORPUSCULAR VOLUME 61 fl (80-97); MONOCYTES % (AUTO) 18.6 % (3-13); PLATELET COUNT 264 10^3/uL (150-450); RED BLOOD COUNT 5.27 10^6/uL (3.72-5.28); RED CELL DISTRIBUTION WIDTH 19.2 % (11.5-14.0); SEGMENTED NEUTROPHILS % (AUTO) 55.3 % (42-78); TOTAL CELLS COUNTED % (AUTO) 100 %; WHITE BLOOD COUNT 3.6 10^3/uL (4.0-10.5)
--- NOTE | 2019-05-15 11:38 | RADIOLOGY REPORT (SQ) ---
EXAM DESCRIPTION: CHEST 2 VIEWS COMPLETED DATE/TIME: 05/15/2019 11:03 am REASON FOR STUDY: cough COMPARISON: None. EXAM PARAMETERS: NUMBER OF VIEWS: two views TECHNIQUE: Digital Frontal and Lateral radiographic views of the chest acquired. RADIATION DOSE: NA LIMITATIONS: none FINDINGS: LUNGS AND PLEURA: No opacities, masses or pneumothorax. No pleural effusion. MEDIASTINUM AND HILAR STRUCTURES: No masses or contour abnormalities. HEART AND VASCULAR STRUCTURES: Heart normal size. No evidence for failure. BONES: No acute findings. HARDWARE: None in the chest. OTHER: No other significant finding. IMPRESSION: NO ACUTE RADIOGRAPHIC FINDING IN THE CHEST. TECHNICAL DOCUMENTATION: JOB ID: [id number] [employer]- All Rights Reserved Reading location - IP/workstation name: [email or web address]
--- NOTE | 2019-05-15 11:51 | ER Document Report ---
ED General - General Chief Complaint: Flu Symptoms Stated Complaint: NAUSEA/VOMITING/BODYACHES Time Seen by Provider: 05/15/19 10:41 Primary Care Provider: RAGHU ORELLANA MD [Primary Care Provider] - Follow up as needed Mode of Arrival: Wheelchair TRAVEL OUTSIDE OF THE [place] IN LAST 30 DAYS: No - HPI Notes: Patient is a 53-year-old female with a history of hypertension who presents the emergency department for evaluation of generalized body aches, cough, vomiting. Her symptoms started about a week ago. She states she had some fevers at home, as well as some chills. She had nausea with emesis as well, this started in the last 48 hours. She states she has not had any emesis today, but has not tried to drink anything nor has she tried to take her antihypertensive medications. She complains of generalized ache but she denies any focal chest pain or shortness of breath. She states she just feels nauseated, weak all over. - Related Data Allergies/Adverse Reactions: ceftriaxone sodium [From Rocephin] Allergy (Severe, Verified 04/25/18 18:49) resp. distress Histamine H2 Inhibitors Allergy (Severe, Verified 04/25/18 18:49) Hives latex [Latex] Allergy (Severe, Verified 04/25/18 18:49) rash Penicillins Allergy (Severe, Verified 04/25/18 18:49) anaphalactic moxifloxacin HCl [From Avelox] Adverse Reaction (Severe, Verified 04/25/18 18:49) Home Medications: Lisinipril, HCTZ Past Medical History - General Information source: Patient - Social History Smoking Status: Never Smoker Family History: CAD, Hypertension, Malignancy Patient has suicidal ideation: No Patient has homicidal ideation: No - Past Medical History Cardiac Medical History: Reports: Hx Hypertension, Hx Pulmonary Embolism Pulmonary Medical History: Reports: Hx Asthma, Hx Pneumonia - 2014, Hx Intubation - x9, Hx Respiratory Failure Neurological Medical History: Denies: Hx Seizures Renal/ Medical History: Reports: Hx Kidney Stones. Denies: Hx Peritoneal Dialysis Malignancy Medical History: Reports: Hx Breast Cancer Musculoskeletal Medical History: Reports Hx Arthritis - shoulders, hips Psychiatric Medical History: Reports: Hx Anxiety Denies: Hx Depression Past Surgical History: Reports: Hx Abdominal Surgery - hiatal hernia, Hx Section, Hx Cholecystectomy, Hx Genitourinary Surgery - Hiatal hernia repair, Hx Lumpectomy. Denies: Hx Appendectomy, Hx Bowel Surgery, Hx Coronary Artery Bypass Graft, Hx Gastric Bypass Surgery, Hx Herniorrhaphy, Hx Hysterectomy, Hx Mastectomy, Hx Pacemaker, Hx Tonsillectomy, Hx Tubal Ligation. Comment Only: Hx Breast Surgery - Benign mass removed R breast - Immunizations Immunizations up to date: Yes Hx Diphtheria, Pertussis, Tetanus Vaccination: Yes Hx Pneumococcal Vaccination: 04/15/11 Review of Systems - Review of Systems Constitutional: See HPI EENT: No symptoms reported Cardiovascular: No symptoms reported Respiratory: See HPI Gastrointestinal: See HPI Genitourinary: No symptoms reported Female Genitourinary: No symptoms reported Musculoskeletal: See HPI Skin: No symptoms reported Neurological/Psychological: No symptoms reported Physical Exam - Vital signs Vitals: Temp Pulse Resp BP Pulse Ox 99.5 F 102 H 24 H 179/96 H 96 05/15/19 10:39 05/15/19 10:39 05/15/19 10:39 05/15/19 10:39 05/15/19 10:39 - Notes Notes: Vital signs reviewed, please refer to chart. Head is normocephalic, atraumatic. Pupils equal round, reactive to light. Neck is supple without meningismus. Heart is regular rate and rhythm. Lungs are clear to auscultation bilaterally. Abdomen is soft, nontender, normoactive bowel sounds throughout. Extremities without cyanosis, clubbing. Posterior calves are nontender. Peripheral pulses are equal. Skin is warm and dry. Patient is awake, alert, neurological exam is nonfocal. Course - Re-evaluation Re-evalutation: 05/15/19 11:50 Patient presents to the emergency department for evaluation. She had initial evaluation as through triage. Chest x-ray was ordered and found to be unremarkable. I was concerned, however, that the patient could be dehydrated. Certainly, I wanted to treat her for her nausea get her to be able to keep her blood pressure medications down. Laboratory investigations were obtained. She is given IV fluids, Zofran. We will continue to monitor. 05/15/19 13:12 Laboratory investigations are largely unremarkable, with the exception of the nitrate positive urine which was sent for culture. Patient is treated here with oral Bactrim, she has multiple other allergies. Patient is feeling somewhat improved after fluids here. We will send her home with Zofran, Bactrim, and close follow-up. She is to return to the ED with worsening. - Vital Signs Vital signs: Temp Pulse Resp BP Pulse Ox 99.5 F 102 H 24 H 179/96 H 96 05/15/19 10:39 05/15/19 10:39 05/15/19 10:39 05/15/19 10:39 05/15/19 10:39 - Laboratory Result Diagrams: 05/15/19 11:15 05/15/19 11:15 Laboratory results interpreted by me: 05/15/19 05/15/19 05/15/19 11:15 11:15 11:20 WBC 3.6 L Hgb 9.9 L Hct 32.3 L MCV 61 L MCH 18.8 L MCHC 30.7 L RDW 19.2 H Lawrence % (Auto) 18.6 H AST 38 H Urine Protein 30 H Urine Nitrite POSITIVE H Ur Leukocyte Esterase TRACE H Discharge - Discharge Clinical Impression: UTI (urinary tract infection), Nausea & vomiting Condition: Stable Disposition: HOME, SELF-CARE Instructions: Viral Syndrome ([facility]), Intravenous (IV) Fluids ([facility]), Trimethoprim-Sulfa ([facility]), Urinary Tract Infection ([facility]) Additional Instructions: Clear liquids, bland diet as tolerated. Take antibiotic as prescribed until gone. Follow-up with primary care this week. Return to the emergency department worsening or new concerning symptoms of any sort. Referrals: RAGHU ORELLANA MD [Primary Care Provider] - Follow up as needed
[2019-05-15 11:56] LABS: ALBUMIN 4.4 g/dL (3.5-5.0); ALKALINE PHOSPHATASE 82 U/L (38-126); ANION GAP 10 (5-19); ASPARTATE AMINO TRANSFERASE 38 U/L (14-36); BILIRUBIN,DIRECT 0.3 mg/dL (0.0-0.4); BILIRUBIN,TOTAL 0.5 mg/dL (0.2-1.3); BLOOD UREA NITROGEN 11 mg/dL (7-20); CALCIUM 8.9 mg/dL (8.4-10.2); CARBON DIOXIDE 27 mmol/L (22-30); CHLORIDE 102 mmol/L (98-107); GLUCOSE 110 mg/dL (75-110); POTASSIUM 4.2 mmol/L (3.6-5.0); TOTAL PROTEIN 8.2 g/dL (6.3-8.2)
[2019-05-15 12:14] LABS: ANISOCYTOSIS 2+; HYPOCHROMASIA 2+; OVALOCYTES 1+; PLATELET COMMENT ADEQUATE; PLATELET LARGE PRESENT
[2019-05-15 12:34] LABS: APPEARANCE,URINE SLIGHTLY-CLOUDY; BILIRUBIN,URINE NEGATIVE (NEGATIVE); COLOR,URINE YELLOW; GLUCOSE, URINE NEGATIVE (NEGATIVE); KETONES,URINE NEGATIVE (NEGATIVE); LEUKOCYTE ESTERASE,URINE TRACE (NEGATIVE); NITRITE,URINE POSITIVE (NEGATIVE); PROTEIN,URINE 30 mg/dL (NEGATIVE); URINE SPECIFIC GRAVITY 1.017; UROBILINOGEN,URINE NEGATIVE mg/dL (<2.0)
[2019-05-15] MEDS ORDERED: SULFAMETHOXAZOLE/TRIMETHOPRIM 800-160 MG TABLET PO ONE (13:11)
[2019-05-15 13:48] VITALS: BP 163/83
== END 2019-05-15 13:47 | disposition home or self-care (01) ==
LOC: ER 10:19
DX: N39.0 Urinary tract infection, site not specified (principal); R11.2 Nausea with vomiting, unspecified; R05 Cough; R50.9 Fever, unspecified; R53.1 Weakness; J45.909 Unspecified asthma, uncomplicated; I10 Essential (primary) hypertension; Z79.899 Other long term (current) drug therapy; Z85.3 Personal history of malignant neoplasm of breast; Z88.1 Allergy status to other antibiotic agents; Z88.8 Allergy status to other drugs, medicaments and biological substances; Z91.040 Latex allergy status; Z87.892 Personal history of anaphylaxis; Z88.0 Allergy status to penicillin
CPT/HCPCS: 36415; 87086; 85025; 87088; 80053; 81001; 71046; J2405; A9270; J7030; 87186; 96361; 96374; 99283